=== PATIENT | female | born 1935 | race Caucasian/White ===

== ENCOUNTER 2021-07-19 01:40 | Inpatient (IN) ==
[2021-07-19 02:00] LABS: BILIRUBIN,URINE Negative (NEGATIVE); CLARITY,URINE Clear (CLEAR); COLOR,URINE Yellow (YELLOW); GLUCOSE, URINE (UA) Negative (NEGATIVE); KETONES,URINE Negative (NEGATIVE); LEUKOCYTE ESTERASE ,URINE 3+ (NEGATIVE); NITRITE,URINE Negative (NEGATIVE); PH,URINE 6.5 (5-9); PROTEIN,URINE 2+ (NEGATIVE); URINE, BLOOD 2+ (NEGATIVE); UROBILINOGEN,URINE 0.2 (0.2)
[2021-07-19 02:07] LABS: RENAL EPITHELIAL CELLS,URINE 30-50 (NOT PRESENT); URINE RBC, MICROSCOPIC 30-50 (0-2); URINE WBC, MICROSCOPIC TNTC (0-2)
[2021-07-19 02:08] LABS: BACTERIA,URINE 4+ (NOT PRESENT)
[2021-07-19] MEDS ORDERED: LEVAQUIN 500 MG/100 ML D5W 500 MG/100 ML BAG IV STA (02:30)
[2021-07-19 02:48] LABS: BASOPHILS # (AUTO) 0.1 K/uL (0-0.2); BASOPHILS % (AUTO) 0.4 % (0.0-3.0); EOSINOPHILS # (AUTO) 0.3 K/ul (0.0-0.7); EOSINOPHILS % (AUTO) 1.8 % (0.0-7.0); HEMATOCRIT 37.3 % (37.0-47.0); HEMOGLOBIN 12.1 g/dl (12.0-16.0); IMMATURE GRANULOCYTE # (AUTO) 0.1 (0.0-1.0); IMMATURE GRANULOCYTE % (AUTO) 0.4 % (0.0-5.0); LYMPHOCYTES # (AUTO) 1.8 K/uL (0.60-3.4); LYMPHOCYTES % (AUTO) 13.2 (10.0-50.0); MEAN CORPUSCULAR HEMOGLOBIN 26.8 pg (27.0-31.0); MEAN CORPUSCULAR HGB CONC 32.4 (31.8-35.4); MEAN CORPUSCULAR VOLUME 82.7 fl (81.0-99.0); MONOCYTES # (AUTO) 1.2 K/uL (0.4-2.0); NEUTROPHILS # (AUTO) 10.2 K/ul (2.0-6.9); NEUTROPHILS % (AUTO) 75.2 % (42.2-75.2); PLATELET COUNT 223 10^3/uL (140-440); RDW COEFFICIENT OF VARIATION 12.7 % (11.6-14.8); RED BLOOD COUNT 4.51 10^6/ul (4.20-5.40); WHITE BLOOD COUNT 13.53 K/ul (4.6-10.2)
[2021-07-19 03:05] LABS: ALANINE AMINOTRANSFERASE 39.2 U/L (0-35); ALBUMIN 4.13 g/dL (3.5-5.0); ALKALINE PHOSPHATASE 98.8 U/L (53-141); ASPARTATE AMINO TRANSFERASE 38.6 U/L (14-36); BILIRUBIN,TOTAL 0.65 mg/dL (0.2-1.3); BLOOD UREA NITROGEN 11.5 mg/dL (7-17); CALCIUM 9.36 mg/dL (8.4-10.2); CARBON DIOXIDE 28.1 mmol/L (22-30.0); CHLORIDE 98.4 mmol/L (98-107); CREATININE 0.89 mg/dL (0.60-1.30); GLUCOSE 158.5 mg/dL (74-106); POTASSIUM 4.28 mmol/L (3.5-5.1); TOTAL PROTEIN 6.95 g/dL (6.3-8.2)
[2021-07-19 03:06] LABS: SODIUM 134.5 mmol/L (134.5-145)
--- NOTE | 2021-07-19 03:08 | ED.PDOC ---
General ED Provider: Dr. DANIEL ROGERS Chief Complaint: Urinary Problem Stated Complaint: Patient is an 85 year old female who comes to the ER with complaints of burning on urination and flank pain for one day. States has a history of Multiple UTIS. Time Seen by Provider: 07/19/21 02:25 Mode of Arrival: Ambulance Information Source: Patient and EMT Primary Care Provider: ANGELA OCAMPO Nursing and Triage Documentation Reviewed and Agree: Yes Does patient meet sepsis criteria?: No System Inflammatory Response Syndrome: Temp 101F or Greater Sepsis Protocol: For patient's 13 years and over: Temp is 96.8 and below OR 101 and greater Pulse >90 BPM Resp >20/minute Acutely Altered Mental Status Are patient's symptoms suggestive of a new infection, such as: -Pneumonia -Skin, Soft Tissue -Endocarditis -UTI -Bone, Joint Infection -Implantable Device -Acute Abdominal Infection -Wound Infection -Meningitis -Blood Stream Catheter Infection -Unknown Complaint Exam UTI Female Complaint/Exam Patient Complains of: Reports Painful urination and Blood in urine Onset/Duration: 2 days Symptoms Are: Still present Timing: Constant Initial Severity: Mild Current Severity: Moderate Location of Pain: Reports Right and Flank Associated Signs and Symptoms: Reports Flank pain Patient Rh Status: Unknown Related History: Reports Similar episode CVA Tenderness: Yes Suprapubic Tenderness: Yes Differential Diagnoses: Cystitis and Pyelonephritis Review of Systems Review Of Systems Constitutional: Reports No symptoms Eyes: Reports No symptoms Ears, Nose, Mouth, Throat: Reports No symptoms Respiratory: Reports No symptoms Cardiac: Reports No symptoms GI: Reports Abdominal pain (suprapubic area ) : Reports Burning, Dysuria and Flank pain Musculoskeletal: Reports No symptoms Skin: Reports No symptoms Neurological: Reports Anxiety Endocrine: Reports No symptoms All Other Systems: Reviewed and Negative [facility] Medical History (Updated 07/19/21 @ 05:30 by WILIAN VIGIL RN) Asthma Familial tremor High cholesterol Hypertension TIA (transient ischemic attack) Family History (Updated 07/19/21 @ 05:32 by WILIAN VIGIL RN) Mother Breast cancer Heart disease FATHER Heart disease SISTER Heart disease Leukemia Social History Smoking and tobacco status: Former smoker Substance use type: does not use Surgical History (Updated 07/19/21 @ 05:33 by WILIAN VIGIL RN) H/O section History of cholecystectomy History of hysterectomy Female Reproductive History Menstrual Hx Hysterectomy: Yes Hx Tubal Ligation: No Physical Exam Physical Exam Appearance: Reports Ill-appearing Ill-appearing: Mild Pain Distress: Moderate Eyes: Reports Conjunctiva clear ENT: Reports Nose normal and Oropharynx normal Neck: Not Examined Respiratory: Reports Airway patent and Breath sounds clear Cardiovascular: Reports RRR and Pulses normal GI/: Reports Soft and Tender Musculoskeletal: Reports ROM intact Skin: Reports Warm and Dry Neurological: Reports Motor intact and Alert Psychiatric: Reports Anxious Interpretation Radiology Interpretation Radiology Interpretation By: Radiologist Radiology Results: No acute changes Exam Interpreted: CT Scan (1. Small hepatic cyst or hemangioma. 2. Status post cholecystectomy. 3. Diverticulosis without diverticulitis. 4. No acute inflammatory process identified within the abdomen or pelvis within the limitation of a noncontrast enhanced examination) Critical Care Note Critical Care Note Total Critical Care Time (mins): 30 Course Course Hematology/Chemistry: 07/19/21 02:45 07/19/21 02:45 Orders, Labs, Meds: Lab Review 07/19/21 07/19/21 07/19/21 02:00 02:45 02:45 WBC 13.53 H RBC 4.51 Hgb 12.1 Hct 37.3 MCV 82.7 MCH 26.8 L MCHC 32.4 RDW Coeff of Jaleesa 12.7 Plt Count 223 Immature Gran % (Auto) 0.4 Neut % (Auto) 75.2 Lymph % (Auto) 13.2 Elk % (Auto) 9.0 Eos % (Auto) 1.8 Baso % (Auto) 0.4 Neut # (Auto) 10.2 H Lymph # (Auto) 1.8 Elk # (Auto) 1.2 Eos # (Auto) 0.3 Baso # (Auto) 0.1 Immature Gran # (Auto) 0.1 Sodium 134.5 Potassium 4.28 Chloride 98.4 Carbon Dioxide 28.1 Anion Gap 12.28 BUN 11.5 Creatinine 0.89 Estimated GFR (MDRD) 61.00 BUN/Creatinine Ratio 12.92 Glucose 158.5 H Calcium 9.36 Total Bilirubin 0.65 AST 38.6 H ALT 39.2 H Alkaline Phosphatase 98.8 Total Protein 6.95 Albumin 4.13 Globulin 2.82 Albumin/Globulin Ratio 1.46 Procalcitonin Urine Color Yellow Urine Clarity Clear Urine pH 6.5 Ur Specific Thebes 1.015 Urine Protein 2+ H Urine Glucose (UA) Negative Urine Ketones Negative Urine Blood 2+ H Urine Nitrite Negative Urine Bilirubin Negative Urine Urobilinogen 0.2 Ur Leukocyte Esterase 3+ H Urine Microscopic RBC 30-50 Urine Microscopic WBC Tntc Ur Squamous Epith Cells 10-20 Ur Renal Epithelial Cell 30-50 Urine Bacteria 4+ Adenovirus (PCR) B. pertussis DNA (PCR) B.parapertussis DNA PCR C. pneumoniae DNA (PCR) Coronavirus OC43 (PCR) Coronavirus HKU1 (PCR) Coronavirus 229E (PCR) Coronavirus NL63 (PCR) Human Metapneumovir PCR Influenza Type A (PCR) Influenza B (RT-PCR) M. pneumoniae (PCR) Parainfluenza 1 (PCR) Parainfluenza 2 (PCR) Parainfluenza 3 (PCR) Parainfluenza 4 (PCR) RSV (PCR) Entero/Rhino (PCR) SARS-CoV-2 (PCR) 07/19/21 07/19/21 02:45 03:04 WBC RBC Hgb Hct MCV MCH MCHC RDW Coeff of Jaleesa Plt Count Immature Gran % (Auto) Neut % (Auto) Lymph % (Auto) Elk % (Auto) Eos % (Auto) Baso % (Auto) Neut # (Auto) Lymph # (Auto) Elk # (Auto) Eos # (Auto) Baso # (Auto) Immature Gran # (Auto) Sodium Potassium Chloride Carbon Dioxide Anion Gap BUN Creatinine Estimated GFR (MDRD) BUN/Creatinine Ratio Glucose Calcium Total Bilirubin AST ALT Alkaline Phosphatase Total Protein Albumin Globulin Albumin/Globulin Ratio Procalcitonin < 0.05 Urine Color Urine Clarity Urine pH Ur Specific Thebes Urine Protein Urine Glucose (UA) Urine Ketones Urine Blood Urine Nitrite Urine Bilirubin Urine Urobilinogen Ur Leukocyte Esterase Urine Microscopic RBC Urine Microscopic WBC Ur Squamous Epith Cells Ur Renal Epithelial Cell Urine Bacteria Adenovirus (PCR) Not detected B. pertussis DNA (PCR) Not detected B.parapertussis DNA PCR Not detected C. pneumoniae DNA (PCR) Not detected Coronavirus OC43 (PCR) Not detected Coronavirus HKU1 (PCR) Not detected Coronavirus 229E (PCR) Not detected Coronavirus NL63 (PCR) Not detected Human Metapneumovir PCR Not detected Influenza Type A (PCR) Not detected Influenza B (RT-PCR) Not detected M. pneumoniae (PCR) Not detected Parainfluenza 1 (PCR) Not detected Parainfluenza 2 (PCR) Not detected Parainfluenza 3 (PCR) Not detected Parainfluenza 4 (PCR) Not detected RSV (PCR) Not detected Entero/Rhino (PCR) Not detected SARS-CoV-2 (PCR) Not detected Orders Category Date Time Status ADMIT PATIENT INPATIENT .TO [facility] (NON-MONITORED ADMISSION 07/19/21 03:43 Active BED) ACTIVITY .Up ad [place] CARE 07/19/21 03:45 Active INTAKE & OUTPUT Q8HR CARE 07/19/21 03:43 Active VITAL SIGNS Q8HR CARE 07/19/21 03:45 Active 2 GRAM SODIUM DIET DIETARY 07/19/21 Breakfast Ordered ED IV/MEDIPORT/POWERPORT .ONCE EMERGENCY 07/19/21 02:30 Active CBC W/ AUTO DIFF DAILY@0600 LAB 07/20/21 06:00 Ordered CBC W/ AUTO DIFF Stat LAB 07/19/21 02:45 Completed COMPREHENSIVE METABOLIC PANEL DAILY@0600 LAB 07/20/21 06:00 Ordered COMPREHENSIVE METABOLIC PANEL Stat LAB 07/19/21 02:45 Completed PROCALCITONIN Stat LAB 07/19/21 02:45 Completed RESPIRATORY PANEL 2.1 (PCR) Stat LAB 07/19/21 03:04 Completed URINALYSIS C & S IF INDICATED Stat LAB 07/19/21 02:00 Completed URINE CULTURE Stat LAB 07/19/21 02:00 Received 0.9 % Sodium Chloride [Saline Flush] MEDS 07/19/21 02:30 Active 1 syr IVF PRN PRN Acetaminophen [Tylenol] MEDS 07/19/21 03:43 Active 650 mg PO Q4H PRN Clopidogrel Bisulfate [Plavix] MEDS 07/19/21 09:00 Active 75 mg PO DAILY Enoxaparin Sodium [Lovenox] MEDS 07/19/21 09:00 Active 40 mg SUBCUT DAILY Hydrocodone Bit/Acetaminophen [[place] 5-325] MEDS 07/19/21 03:43 Active 1 tab PO Q6H PRN Hydromorphone HCl [Dilaudid 1 mg/ml Syringe] MEDS 07/19/21 03:43 Active 0.5 mg IVP Q4HR PRN Levofloxacin/D5w [Levaquin 500 mg/100 ml D5w] MEDS 07/20/21 15:00 Active 500 mg in 100 ml IV DAILY Levofloxacin/D5w [Levaquin 500 mg/100 ml D5w] MEDS 07/19/21 02:30 Discontinued 500 mg in 100 ml IV ONCE Losartan Potassium [Cozaar] MEDS 07/19/21 09:00 Active 50 mg PO DAILY Ondansetron HCl/Pf [Zofran 4 mg/2 ml] MEDS 07/19/21 03:43 Active 4 mg IVP Q6H PRN Pantoprazole Sodium [Protonix] MEDS 07/19/21 06:30 Active 40 mg PO DAILY@0630 Polyethylene Glycol 3350 [Miralax] MEDS 07/19/21 09:00 Active 17 gm PO DAILY Potassium Chloride in 0.9%NaCl [Sodium Chloride 0.9%- MEDS 07/19/21 04:00 Active KCl 20 Meq] 1,000 ml IV 125 mls/hr Pravastatin Sodium [Pravachol] MEDS 07/19/21 21:00 Active 40 mg PO BEDTIME Primidone [Mysoline] MEDS 07/19/21 09:00 Active 50 mg PO BID linaclotide [Linzess] MEDS 07/19/21 09:00 Pending 72 mcg PO DAILY propranolol MEDS 07/19/21 09:00 Pending 120 mg PO DAILY RESUSCITATION STATUS Routine OTHERS 07/19/21 03:[address] ABD/PEL WO RENAL STONE PROT Stat RADS 07/19/21 03:04 Completed Medications Generic Name Dose Route Start Last Admin Trade Name Freq PRN Reason Stop Dose Admin Acetaminophen 650 mg 07/19/21 03:43 Acetaminophen 325 Mg Tablet PO Q4H PRN mild pain Hydrocodone Bitart/Acetaminophen 1 tab 07/19/21 03:43 Hydrocodone Bit/Acetaminophen 5/325 Mg Tablet PO Q6H PRN moderate pain Clopidogrel Bisulfate 75 mg 07/19/21 09:00 Clopidogrel Bisulfate 75 Mg Tablet PO DAILY SHEELA Enoxaparin Sodium 40 mg 07/19/21 09:00 Enoxaparin Sodium 40 Mg/0.4 Ml Syr SUBCUT DAILY SHEELA Hydromorphone HCl 0.5 mg 07/19/21 03:43 Hydromorphone Hcl 1 Mg/Ml Syringe IVP Q4HR PRN Severe Pain Potassium Chloride/Sodium Chloride 1,000 mls @ 125 mls/hr 09/24/21 04:00 07/19/21 04:40 Sodium Chloride 0.9%-Kcl 20 Meq IV 125 mls/hr .Q8H SHEELA Administration Levofloxacin/Dextrose 500 mg in 100 mls @ 100 mls/hr 07/20/21 15:00 Levaquin 500 Mg/100 Ml D5w IV 07/23/21 14:59 DAILY SHEELA Losartan Potassium 50 mg 07/19/21 09:00 Losartan Potassium 25 Mg Tablet PO DAILY SHEELA Non-Formulary Medication 72 mcg 07/19/21 09:00 Linaclotide [Linzess] PO DAILY SHEELA Non-Formulary Medication 120 mg 07/19/21 09:00 Propranolol PO DAILY SHEELA Ondansetron HCl 4 mg 07/19/21 03:43 Ondansetron Hcl/Pf 4 Mg/2 Ml Sdv IVP Q6H PRN Nausea / Vomiting Pantoprazole Sodium 40 mg 07/19/21 06:30 07/19/21 05:55 Pantoprazole Sodium 40 Mg Tablet.Dr PO 40 mg DAILY@0630 SHEELA Administration Polyethylene Glycol 17 gm 07/19/21 09:00 Polyethylene Glycol 17 Gm Powd.Pack PO DAILY SHEELA Pravastatin Sodium 40 mg 07/19/21 21:00 Pravastatin Sodium 40 Mg Tablet PO BEDTIME SHEELA Primidone 50 mg 07/19/21 09:00 Primidone 50 Mg Tablet PO BID SHEELA Sodium Chloride 1 syr 07/19/21 02:30 0.9% Sodium Chloride 10 Ml Disp.Syrin IVF PRN PRN To flush IV Discontinued Medications Generic Name Dose Route Start Last Admin Trade Name Freq PRN Reason Stop Dose Admin Levofloxacin/Dextrose 500 mg in 100 mls @ 100 mls/hr 07/19/21 02:30 07/19/21 02:52 Levaquin 500 Mg/100 Ml D5w IV 07/19/21 03:29 100 mls/hr ONCE STA Administration Vital Signs: Temp Pulse Resp BP Pulse Ox 07/19/21 01:40 97.1 F L 80 14 154/69 H 96 Discharge Plan Discharge Patient Disposition: ADMITTED INPATIENT Discharge Problem: Acute pyelonephritis due to bacteria ED Provider: DANIEL ROGERS Condition: Stable Physician Progress Note: []
[2021-07-19] MEDS ORDERED: TYLENOL PO PRN (03:43)
[2021-07-19] MEDS ORDERED: DILAUDID 1 MG/ML SYRINGE IVP PRN (03:43)
[2021-07-19] MEDS ORDERED: ZOFRAN 4 MG/2 ML IVP PRN (03:43)
[2021-07-19] MEDS ORDERED: NORCO 5-325 PO PRN (03:43)
[2021-07-19 04:07] LABS: ADENOVIRUS (PCR) NOT DETECTED (NOT DETECT); BORDETELLA PARAPERTUSSIS (PCR) NOT DETECTED (NOT DETECT); BORDETELLA PERTUSSIS (PCR) NOT DETECTED (NOT DETECT); CHLAMYDIA PNEUMONIAE (PCR) NOT DETECTED (NOT DETECT); CORONAVIRUS 229E (PCR) NOT DETECTED (NOT DETECT); CORONAVIRUS HKU1 (PCR) NOT DETECTED (NOT DETECT); CORONAVIRUS NL63 (PCR) NOT DETECTED (NOT DETECT); CORONAVIRUS OC43 (PCR) NOT DETECTED (NOT DETECT); HUMAN METAPNEUMOVIRUS (PCR) NOT DETECTED (NOT DETECT); HUMAN RHINOVIRUS/ENTEROV (PCR) NOT DETECTED (NOT DETECT); INFLUENZA B (PCR) NOT DETECTED (NOT DETECT); MYCOPLASMA PNEUMONIAE (PCR) NOT DETECTED (NOT DETECT); PARAINFLUENZA VIRUS 1 (PCR) NOT DETECTED (NOT DETECT); PARAINFLUENZA VIRUS 2 (PCR) NOT DETECTED (NOT DETECT); PARAINFLUENZA VIRUS 3 (PCR) NOT DETECTED (NOT DETECT); PARAINFLUENZA VIRUS 4 (PCR) NOT DETECTED (NOT DETECT); RESPIRATORY SYNCYTIAL V (PCR) NOT DETECTED (NOT DETECT); SARS_COV_2 (PCR) NOT DETECTED (NOT DETECT)
--- NOTE | 2021-07-19 04:28 | CT ---
EXAM: CT abdomen pelvis without intravenous contrast 07/19/2021. Sagittal and coronal reformatted i mages obtained HISTORY: Right flank pain. COMPARISON: None. FINDINGS: No acute hepatic abnormality. Focal low density within the left lobe on image 16 measures 7 mm. This may represent small cyst or hemangioma. Liver shows no acute process. Status post chol ecystectomy. The adrenal glands and kidneys show no acute abnormality. There is no hydronephrosis. Unremarkable urinary bladder. The spleen and pancreas show no acute process. The appendix not visualized. No secondary signs of appendicitis. Unremarkable urinary bladder. No free air. No free fluid. Colonic diverticulosis. No evidence of acute diverticulitis. Chronic degenerative disc disease most severe L4-L5. No acute osseous abnormality IMPRESSION: 1. Small hepatic cyst or hemangioma. 2. Status post cholecystectomy. 3. Diverticulosis without diverticulitis. 4. No acute inflammatory process identified within the abdomen or pelvis within the limitation of a noncontrast enhanced examination. All CT scans are performed using dose optimization techniques as appropriate to the performed exam an d include at least one of the following: Automated exposure control, adjustment of the mA and/or kV according t o size, and the use of iterative reconstruction technique.
[2021-07-19] MEDS: SODIUM CHLORIDE 0.9%-KCL 20 MEQ 1,000 ML IV SCH ×2 (04:40→14:04)
[2021-07-19 05:40] VITALS: BMI 24.9
[2021-07-19] MEDS: PROTONIX PO SCH (05:55)
[2021-07-19] MEDS ORDERED: PROPRANOLOL 120 MG PO SCH (09:00)
[2021-07-19] MEDS: COZAAR PO SCH (10:19)
[2021-07-19] MEDS: LOVENOX SUBCUT SCH (10:24)
[2021-07-19] MEDS: INDERAL PO SCH ×2 (10:25→20:29)
[2021-07-19] MEDS: MIRALAX PO SCH (10:26)
[2021-07-19] MEDS: PLAVIX PO SCH (10:27)
[2021-07-19] MEDS: MYSOLINE PO SCH ×2 (10:32→20:29)
[2021-07-19] MEDS: NON-FORMULARY MEDICATION (Linaclotide [Linzess] 72 mcg Capsule) PO SCH (13:51)
[2021-07-19] MEDS: PRAVACHOL PO SCH (20:29)
[2021-07-19] MEDS ORDERED: LEVAQUIN 750 MG/150 ML D5W 750 MG/150 ML BAG IV SCH (21:00)
[2021-07-20] MEDS: SODIUM CHLORIDE 0.9%-KCL 20 MEQ 1,000 ML IV SCH ×3 (00:10→17:48)
[2021-07-20 04:52] LABS: BASOPHILS % (AUTO) 0.5 % (0.0-3.0); EOSINOPHILS # (AUTO) 0.3 K/ul (0.0-0.7); EOSINOPHILS % (AUTO) 5.1 % (0.0-7.0); HEMATOCRIT 34.5 % (37.0-47.0); HEMOGLOBIN 10.8 g/dl (12.0-16.0); IMMATURE GRANULOCYTE % (AUTO) 0.3 % (0.0-5.0); LYMPHOCYTES # (AUTO) 1.9 K/uL (0.60-3.4); LYMPHOCYTES % (AUTO) 32.1 (10.0-50.0); MEAN CORPUSCULAR HEMOGLOBIN 26.4 pg (27.0-31.0); MEAN CORPUSCULAR HGB CONC 31.3 (31.8-35.4); MEAN CORPUSCULAR VOLUME 84.4 fl (81.0-99.0); MONOCYTES # (AUTO) 0.6 K/uL (0.4-2.0); MONOCYTES % (AUTO) 10.9 (0-10); NEUTROPHILS % (AUTO) 51.1 % (42.2-75.2); PLATELET COUNT 193 10^3/uL (140-440); RDW COEFFICIENT OF VARIATION 12.7 % (11.6-14.8); RED BLOOD COUNT 4.09 10^6/ul (4.20-5.40)
[2021-07-20 04:53] LABS: WHITE BLOOD COUNT 5.89 K/ul (4.6-10.2)
[2021-07-20 05:02] LABS: ALANINE AMINOTRANSFERASE 24.4 U/L (0-35); ALBUMIN 3.45 g/dL (3.5-5.0); ALKALINE PHOSPHATASE 86.3 U/L (53-141); ASPARTATE AMINO TRANSFERASE 23.9 U/L (14-36); BILIRUBIN,TOTAL 0.47 mg/dL (0.2-1.3); BLOOD UREA NITROGEN 10.3 mg/dL (7-17); CALCIUM 8.64 mg/dL (8.4-10.2); CARBON DIOXIDE 26.9 mmol/L (22-30.0); CHLORIDE 107.4 mmol/L (98-107); CREATININE 0.86 mg/dL (0.60-1.30); GLUCOSE 124.1 mg/dL (74-106); POTASSIUM 4.56 mmol/L (3.5-5.1); SODIUM 139.7 mmol/L (134.5-145); TOTAL PROTEIN 6.08 g/dL (6.3-8.2)
[2021-07-20] MEDS: PROTONIX PO SCH (05:47)
[2021-07-20] MEDS: INDERAL PO SCH ×2 (08:36→21:01)
[2021-07-20] MEDS: MIRALAX PO SCH (08:36)
[2021-07-20] MEDS: COZAAR PO SCH (08:37)
[2021-07-20] MEDS: PLAVIX PO SCH (08:37)
[2021-07-20] MEDS: LOVENOX SUBCUT SCH (08:39)
[2021-07-20] MEDS: NON-FORMULARY MEDICATION (Linaclotide [Linzess] 72 mcg Capsule) PO SCH (08:47)
[2021-07-20] MEDS: MYSOLINE PO SCH ×2 (08:50→21:01)
[2021-07-20] MEDS ORDERED: LEVAQUIN 500 MG/100 ML D5W 500 MG/100 ML BAG IV SCH (15:00)
--- NOTE | 2021-07-20 19:55 | PCM.PROG ---
Date Seen by Provider: 07/20/21 Time Seen by Provider: 14:30 Subjective: Feeling much better today. Objective: Vitals: T=97.7 F, P=62, R=20, QL=449/54, SPO2=98 HEENT: Clear Neck: supple Lungs: CTA-AF CVS: HRRR Abdomen: Soft non tender Extremities: Tremor Neurological: Familial tremor Skin: WNL Lab/Tests/Diagnostic Imaging: Culture -postive gm neg lenka (1) Acute pyelonephritis due to bacteria: Status: Acute Code(s): N10 - Acute pyelonephritis; B96.89 - Other specified bacterial agents as the cause of diseases classified elsewhere SNOMED Code(s): 139133476 Plan: Continue present treatment Follw up in the AM
[2021-07-20] MEDS: PRAVACHOL PO SCH (21:01)
[2021-07-21 04:54] LABS: BASOPHILS % (AUTO) 0.5 % (0.0-3.0); EOSINOPHILS # (AUTO) 0.5 K/ul (0.0-0.7); HEMATOCRIT 35.6 % (37.0-47.0); HEMOGLOBIN 11.3 g/dl (12.0-16.0); IMMATURE GRANULOCYTE % (AUTO) 0.4 % (0.0-5.0); LYMPHOCYTES # (AUTO) 2.2 K/uL (0.60-3.4); LYMPHOCYTES % (AUTO) 29.4 (10.0-50.0); MEAN CORPUSCULAR HEMOGLOBIN 26.7 pg (27.0-31.0); MEAN CORPUSCULAR HGB CONC 31.7 (31.8-35.4); MONOCYTES # (AUTO) 0.7 K/uL (0.4-2.0); MONOCYTES % (AUTO) 9.4 (0-10); NEUTROPHILS # (AUTO) 4.1 K/ul (2.0-6.9); NEUTROPHILS % (AUTO) 54.3 % (42.2-75.2); PLATELET COUNT 222 10^3/uL (140-440); RDW COEFFICIENT OF VARIATION 12.7 % (11.6-14.8); RED BLOOD COUNT 4.24 10^6/ul (4.20-5.40); WHITE BLOOD COUNT 7.48 K/ul (4.6-10.2)
[2021-07-21 05:06] LABS: ALANINE AMINOTRANSFERASE 21.5 U/L (0-35); ALBUMIN 3.84 g/dL (3.5-5.0); ALKALINE PHOSPHATASE 86.5 U/L (53-141); ASPARTATE AMINO TRANSFERASE 22.9 U/L (14-36); BILIRUBIN,TOTAL 0.42 mg/dL (0.2-1.3); BLOOD UREA NITROGEN 10.8 mg/dL (7-17); CALCIUM 9.28 mg/dL (8.4-10.2); CARBON DIOXIDE 29.1 mmol/L (22-30.0); CHLORIDE 103.4 mmol/L (98-107); CREATININE 0.85 mg/dL (0.60-1.30); GLUCOSE 136.8 mg/dL (74-106); MAGNESIUM 2.08 mg/dL (1.6-2.3); POTASSIUM 4.33 mmol/L (3.5-5.1); SODIUM 137.3 mmol/L (134.5-145); TOTAL PROTEIN 6.57 g/dL (6.3-8.2)
[2021-07-21] MEDS: PROTONIX PO SCH (06:11)
[2021-07-21] MEDS: MIRALAX PO SCH (09:30)
[2021-07-21] MEDS: INDERAL PO SCH (09:30)
[2021-07-21] MEDS: PLAVIX PO SCH (09:30)
[2021-07-21] MEDS: COZAAR PO SCH (09:30)
[2021-07-21] MEDS: MYSOLINE PO SCH (09:30)
[2021-07-21] MEDS: NON-FORMULARY MEDICATION (Linaclotide [Linzess] 72 mcg Capsule) PO SCH (09:31)
[2021-07-21] MEDS: LOVENOX SUBCUT SCH (09:31)
[2021-07-21 13:42] VITALS: BP 135/57; TEMP 97.3
--- NOTE | 2021-08-11 20:55 | PCM.DC ---
Final Diagnosis: Pyelonephritis (1) Acute pyelonephritis due to bacteria: Status: Acute Code(s): N10 - Acute pyelonephritis; B96.89 - Other specified bacterial agents as the cause of diseases classified elsewhere SNOMED Code(s): 851862003 Reason for Hospitalization: Treatment of infection with IV antibiotics Prognosis/Condition at Discharge: Fair Medications at Discharge: Ambulatory Orders Medication Instructions Recorded clopidogrel 75 mg tablet (Plavix) 75 mg PO DAILY 12/10/19 pantoprazole 20 mg tablet,delayed 40 mg PO DAILY 12/10/19 release primidone 50 mg tablet 50 mg PO BID 12/10/19 losartan 50 mg tablet 50 mg PO DAILY 03/24/21 polyethylene glycol 3350 17 17 g PO DAILY PRN 03/24/21 gram/dose oral powder (Miralax) pravastatin 40 mg tablet 40 mg PO BEDTIME 03/24/21 propranolol 120 mg 120 mg PO DAILY 03/24/21 capsule,extended release 24 hr linaclotide 72 mcg capsule 72 mcg PO DAILY 07/19/21 (Linzess) levofloxacin 250 mg tablet 750 mg PO Q48H #6 tab 07/21/21 Lab/Diagnostics: See Lab Section Follow-ups: See PCP 1 wk
== END 2021-07-21 14:50 | disposition home or self-care (01) | DRG 690 ==
LOC: ED 01:40 → MEDSURG A 04:40
PROVIDERS: ADMIT Internal Medicine Geriatric Medicine; ATTEND Family Medicine
DX: B96.89 Other specified bacterial agents as the cause of diseases classified elsewhere; R10.9 Unspecified abdominal pain; N10 Acute pyelonephritis; Z20.822 Contact with and (suspected) exposure to COVID-19

== ENCOUNTER 2021-08-24 11:05 | Inpatient (IN) ==
--- NOTE | 2021-08-24 11:23 | ED.PDOC ---
General ED Provider: Dr. MARISELA FERRER Chief Complaint: Altered Mental Status Stated Complaint: Recent treatment for UTI yesterday here Given IM Rocephin and discharged to home. Found to be very confused this morning sitting on floor in residence-not making and Time Seen by Provider: 08/24/21 12:21 Mode of Arrival: Ambulance Information Source: Patient Exam Limitations: Clinical condition Primary Care Provider: ANGELA OCAMPO Seen Within Last 72 Hours for Same Complaint By: ED Nursing and Triage Documentation Reviewed and Agree: Yes Does patient meet sepsis criteria?: No System Inflammatory Response Syndrome: Not Applicable Sepsis Protocol: For patient's 13 years and over: Temp is 96.8 and below OR 101 and greater Pulse >90 BPM Resp >20/minute Acutely Altered Mental Status Are patient's symptoms suggestive of a new infection, such as: -Pneumonia -Skin, Soft Tissue -Endocarditis -UTI -Bone, Joint Infection -Implantable Device -Acute Abdominal Infection -Wound Infection -Meningitis -Blood Stream Catheter Infection -Unknown Review of Systems Review Of Systems Constitutional: Reports Weakness and Loss of appetite Eyes: Reports No symptoms Ears, Nose, Mouth, Throat: Reports No symptoms Respiratory: Reports No symptoms Cardiac: Reports No symptoms GI: Reports No symptoms : Reports No symptoms Musculoskeletal: Reports No symptoms Skin: Reports No symptoms Neurological: Reports Anxiety Endocrine: Reports No symptoms Hematologic/Lymphatic: Reports No symptoms All Other Systems: Reviewed and Negative [facility] Medical History (Updated 08/24/21 @ 15:59 by AGNIESZKA LESTER RN) Acute pyelonephritis due to bacteria Asthma Familial tremor High cholesterol Hypertension TIA (transient ischemic attack) Family History Mother Breast cancer Heart disease FATHER Heart disease SISTER Heart disease Leukemia Social History Smoking and tobacco status: Former smoker Substance use type: does not use Surgical History H/O section History of cholecystectomy History of hysterectomy Female Reproductive History Menstrual Hx Hysterectomy: Yes Hx Tubal Ligation: No Physical Exam Physical Exam Appearance: Reports Ill-appearing, Obese and Cachectic Ill-appearing: Mild Pain Distress: Mild Eyes: Reports VALENTINO, EOMI and Conjunctiva clear ENT: Reports Ears normal, Nose normal and Oropharynx normal Neck: Supple Respiratory: Reports Airway patent, Breath sounds clear and Breath sounds equal Cardiovascular: Reports RRR, Pulses normal and No murmur GI/: Reports Soft, Nontender, No masses and Bowel sounds normal Musculoskeletal: Reports Normal strength, ROM intact and Limited strength Skin: Reports Warm, Dry and Pale Neurological: Reports Motor intact, Cranial nerves intact, Alert, Disoriented and Alert to verbal Psychiatric: Reports Affect appropriate and Mood appropriate NIH Stroke Scale 1a. Level of Consciousness: 0=Alert and keenly responsive 1b. Level of Consciousness Questions: 1=Answers correctly to one question 1c. Level of Consciousness Commands: 0=Performs two tasks correctly 2. Best Gaze: 0=Normal 3. Visual: 0=No visual loss 4. Facial Palsy: 0=Normal 5a. Motor Left Arm: 0=No drift,arm holds 90 degrees for 10 sec., leg 30 degrees for 5 sec. 5b. Motor Right Arm: 0=No drift,arm holds 90 degrees for 10 sec., leg 30 degrees for 5 sec. 6a. Motor Left Le=No drift,arm holds 90 degrees for 10 sec., leg 30 degrees for 5 sec. 6b. Motor Right Le=No drift,arm holds 90 degrees for 10 sec., leg 30 degrees for 5 sec. 7. Limb Ataxia: 0=Absent 8. Sensory: 0=Normal 9. Best Language: 0=No aphasia 10. Dysarthria: 0=Normal 11. Extincion and Inattention: 0=Normal Stroke Scale Total: 1 Critical Care Note Critical Care Note Total Critical Care Time (mins): 30 Course Course Hematology/Chemistry: 08/26/21 05:14 08/26/21 05:14 Orders, Labs, Meds: Lab Review 08/24/21 08/24/21 08/24/21 12:00 12:10 12:10 WBC 23.54 H RBC 4.68 Hgb 12.2 Hct 36.4 L MCV 77.8 L MCH 26.1 L MCHC 33.5 RDW Coeff of Jaleesa 12.7 Plt Count 237 Immature Gran % (Auto) 0.9 Neut % (Auto) 84.1 H Lymph % (Auto) 4.7 L [place] % (Auto) 10.2 H Eos % (Auto) 0.0 Baso % (Auto) 0.1 Neut # (Auto) 19.8 H Lymph # (Auto) 1.1 [place] # (Auto) 2.4 H Eos # (Auto) 0.0 Baso # (Auto) 0.0 Immature Gran # (Auto) 0.2 Puncture Site Base Excess O2 Saturation ABG pH ABG pCO2 ABG pO2 ABG HCO3 ABG Total CO2 Quentin Test Hemoglobin Oxyhemoglobin Carboxyhemoglobin Total Hemoglobin FiO2 % Sodium 129.4 L Potassium 3.71 Chloride 93.7 L Carbon Dioxide 25.2 Anion Gap 14.21 BUN 19.3 H Creatinine 0.83 Estimated GFR (MDRD) 65.00 BUN/Creatinine Ratio 23.25 Glucose 184.5 H Calcium 9.75 Total Bilirubin 1.59 H AST 36.4 H ALT 16.2 Alkaline Phosphatase 86.8 Troponin I < 0.012 Total Protein 7.52 Albumin 4.08 Globulin 3.44 Albumin/Globulin Ratio 1.18 Urine Color Urine Clarity Urine pH Ur Specific [place] Urine Protein Urine Glucose (UA) Urine Ketones Urine Blood Urine Nitrite Urine Bilirubin Urine Urobilinogen Ur Leukocyte Esterase Urine Microscopic RBC Urine Microscopic WBC Ur Squamous Epith Cells Hyaline Casts Urine Mucus Urine Opiates Screen Ur Oxycodone Screen Urine Methadone Screen Ur Propoxyphene Screen Ur Barbiturates Screen U Tricyclic Antidepress Ur Phencyclidine Scrn Ur Amphetamine Screen U Methamphetamines Scrn U Benzodiazepines Scrn Urine Cocaine Screen U Cannabinoids Screen Adenovirus (PCR) B. pertussis DNA (PCR) B.parapertussis DNA PCR C. pneumoniae DNA (PCR) Coronavirus OC43 (PCR) Coronavirus HKU1 (PCR) Coronavirus 229E (PCR) Coronavirus NL63 (PCR) Human Metapneumovir PCR Influenza Type A (PCR) Influenza B (RT-PCR) M. pneumoniae (PCR) Parainfluenza 1 (PCR) Parainfluenza 2 (PCR) Parainfluenza 3 (PCR) Parainfluenza 4 (PCR) RSV (PCR) Entero/Rhino (PCR) SARS-CoV-2 (PCR) 08/24/21 08/24/21 08/24/21 12:30 12:50 12:50 WBC RBC Hgb Hct MCV MCH MCHC RDW Coeff of Jaleesa Plt Count Immature Gran % (Auto) Neut % (Auto) Lymph % (Auto) [place] % (Auto) Eos % (Auto) Baso % (Auto) Neut # (Auto) Lymph # (Auto) [place] # (Auto) Eos # (Auto) Baso # (Auto) Immature Gran # (Auto) Puncture Site Rb Base Excess 1.0 O2 Saturation 91.5 L ABG pH 7.47 H ABG pCO2 34.0 L ABG pO2 58.0 L* ABG HCO3 24.7 ABG Total CO2 25.7 H Quentin Test Pos Hemoglobin 1.5 Oxyhemoglobin 91.9 L Carboxyhemoglobin 2.6 H Total Hemoglobin 11.1 L FiO2 % 21.0 Sodium Potassium Chloride Carbon Dioxide Anion Gap BUN Creatinine Estimated GFR (MDRD) BUN/Creatinine Ratio Glucose Calcium Total Bilirubin AST ALT Alkaline Phosphatase Troponin I Total Protein Albumin Globulin Albumin/Globulin Ratio Urine Color Dark Urine Clarity Slightly Urine pH 5.5 Ur Specific [place] >=1.030 Urine Protein 3+ H Urine Glucose (UA) Trace H Urine Ketones 2+ H Urine Blood 2+ H Urine Nitrite Negative Urine Bilirubin 1+ H Urine Urobilinogen 1.0 H Ur Leukocyte Esterase Negative Urine Microscopic RBC 10-20 Urine Microscopic WBC 0-2 Ur Squamous Epith Cells 5-10 Hyaline Casts 2-5 Urine Mucus 2+ Urine Opiates Screen Negative Ur Oxycodone Screen Negative Urine Methadone Screen Negative Ur Propoxyphene Screen Negative Ur Barbiturates Screen Negative U Tricyclic Antidepress Negative Ur Phencyclidine Scrn Negative Ur Amphetamine Screen Negative U Methamphetamines Scrn Negative U Benzodiazepines Scrn Negative Urine Cocaine Screen Negative U Cannabinoids Screen Negative Adenovirus (PCR) B. pertussis DNA (PCR) B.parapertussis DNA PCR C. pneumoniae DNA (PCR) Coronavirus OC43 (PCR) Coronavirus HKU1 (PCR) Coronavirus 229E (PCR) Coronavirus NL63 (PCR) Human Metapneumovir PCR Influenza Type A (PCR) Influenza B (RT-PCR) M. pneumoniae (PCR) Parainfluenza 1 (PCR) Parainfluenza 2 (PCR) Parainfluenza 3 (PCR) Parainfluenza 4 (PCR) RSV (PCR) Entero/Rhino (PCR) SARS-CoV-2 (PCR) 08/24/21 13:12 WBC RBC Hgb Hct MCV MCH MCHC RDW Coeff of Jaleesa Plt Count Immature Gran % (Auto) Neut % (Auto) Lymph % (Auto) [place] % (Auto) Eos % (Auto) Baso % (Auto) Neut # (Auto) Lymph # (Auto) [place] # (Auto) Eos # (Auto) Baso # (Auto) Immature Gran # (Auto) Puncture Site Base Excess O2 Saturation ABG pH ABG pCO2 ABG pO2 ABG HCO3 ABG Total CO2 Quentin Test Hemoglobin Oxyhemoglobin Carboxyhemoglobin Total Hemoglobin FiO2 % Sodium Potassium Chloride Carbon Dioxide Anion Gap BUN Creatinine Estimated GFR (MDRD) BUN/Creatinine Ratio Glucose Calcium Total Bilirubin AST ALT Alkaline Phosphatase Troponin I Total Protein Albumin Globulin Albumin/Globulin Ratio Urine Color Urine Clarity Urine pH Ur Specific [place] Urine Protein Urine Glucose (UA) Urine Ketones Urine Blood Urine Nitrite Urine Bilirubin Urine Urobilinogen Ur Leukocyte Esterase Urine Microscopic RBC Urine Microscopic WBC Ur Squamous Epith Cells Hyaline Casts Urine Mucus Urine Opiates Screen Ur Oxycodone Screen Urine Methadone Screen Ur Propoxyphene Screen Ur Barbiturates Screen U Tricyclic Antidepress Ur Phencyclidine Scrn Ur Amphetamine Screen U Methamphetamines Scrn U Benzodiazepines Scrn Urine Cocaine Screen U Cannabinoids Screen Adenovirus (PCR) Not detected B. pertussis DNA (PCR) Not detected B.parapertussis DNA PCR Not detected C. pneumoniae DNA (PCR) Not detected Coronavirus OC43 (PCR) Not detected Coronavirus HKU1 (PCR) Not detected Coronavirus 229E (PCR) Not detected Coronavirus NL63 (PCR) Not detected Human Metapneumovir PCR Not detected Influenza Type A (PCR) Not detected Influenza B (RT-PCR) Not detected M. pneumoniae (PCR) Not detected Parainfluenza 1 (PCR) Not detected Parainfluenza 2 (PCR) Not detected Parainfluenza 3 (PCR) Not detected Parainfluenza 4 (PCR) Not detected RSV (PCR) Not detected Entero/Rhino (PCR) Not detected SARS-CoV-2 (PCR) Not detected Orders Category Date Time Status ADMIT PATIENT INPATIENT .TO SCU (MONITORED BED) ADMISSION 08/24/21 13:21 Active ABG DRAW REQUEST Stat CARDIO 08/24/21 11:54 Completed EKG-(ED ONLY) Stat CARDIO 08/24/21 11:50 Completed METERED DOSE INHALATION Routine CARDIO 08/24/21 13:16 Completed TELEMETRY MONITORING TELE CARE 08/24/21 13:22 Active ABG COOX Stat LAB 08/24/21 12:30 Completed BLOOD CULTURE (ED ONLY) Stat LAB 08/24/21 12:55 Results CBC W/ AUTO DIFF Stat LAB 08/24/21 12:00 Completed CMP [COMPREHENSIVE METABOLIC PANEL] Stat LAB 08/24/21 12:10 Completed RESPIRATORY PANEL 2.1 (PCR) Stat LAB 08/24/21 13:12 Completed TROPONIN I Stat LAB 08/24/21 12:10 Completed UA [URINALYSIS C & S IF INDICATED] Stat LAB 08/24/21 12:50 Completed URINE DRUG SCREEN (RAPID FOR ED) [DRUG SCREEN, URINE, LAB 08/24/21 12:50 Compl eted RAPID] Stat Albuterol Inhaler(with Spacer) [Ventolin Hfa (Per Puff- MEDS 08/24/21 13:16 Discontinued with Spacer)] 2 puff IH ONCE ONE Ceftriaxone/D5w 1 gm Premix [Rocephin 1 gm/50 ml D5w] MEDS 08/24/21 13:10 Discontinued 1 gm in 50 ml IV ONCE Methylprednisolone Sod Succ/Pf [Solu-Medrol 125 mg] MEDS 08/24/21 13:16 Discontinued 125 mg IVP ONCE ONE Sodium Chloride 0.9% [Sodium Chloride] 1,000 ml MEDS 08/24/21 13:09 Discontinued IV BOLUS CHEST, 1V AP ONLY Stat RADS 08/24/21 11:[address] HEAD W/O CONTRAST Stat RADS 08/24/21 11:55 Completed Medications Generic Name Dose Route Start Last Admin Trade Name Freq PRN Reason Stop Dose Admin Acetaminophen 650 mg 08/24/21 17:25 08/25/21 04:47 Acetaminophen 325 Mg Tablet PO 650 mg Q4H PRN Administration fever or pain Clopidogrel Bisulfate 75 mg 08/24/21 17:30 08/26/21 09:51 Clopidogrel Bisulfate 75 Mg Tablet PO 75 mg DAILY SHEELA Administration Enoxaparin Sodium 40 mg 08/24/21 17:30 08/26/21 09:55 Enoxaparin Sodium 40 Mg/0.4 Ml Syr SUBCUT 40 mg DAILY SHEELA Administration Sodium Chloride 1,000 mls @ 75 mls/hr 08/24/21 17:30 08/26/21 02:25 Sodium Chloride IV 75 mls/hr .[id number] SHEELA Administration CEFTRIAXONE/D5W 1 GM PREMIX 1 gm in 50 mls @ 75 mls/hr 08/25/21 09:00 08/26/21 09:51 Rocephin 1 Gm/50 Ml D5w IV 08/28/21 08:59 75 mls/hr DAILY SHEELA Administration Losartan Potassium 50 mg 08/25/21 09:00 08/26/21 09:51 Losartan Potassium 25 Mg Tablet PO 50 mg DAILY SHEELA Administration Lubiprostone 24 mcg 08/26/21 21:00 Lubiprostone 24 Mcg Capsule PO BID SHEELA Methylprednisolone Sodium Succinate 125 mg 08/24/21 17:30 08/26/21 13:12 Methylprednisolone Sod Succ/Pf 125 Mg/2 Ml Vial IVP 125 mg Q8HR SHEELA Administration Non-Formulary Medication 120 mg 08/25/21 09:00 08/26/21 09:00 Propranolol PO Not Given DAILY SHEELA Ondansetron HCl 4 mg 08/24/21 17:25 Ondansetron Hcl/Pf 4 Mg/2 Ml Sdv IVP Q6H PRN Nausea / Vomiting Pantoprazole Sodium 40 mg 08/25/21 09:00 08/26/21 09:51 Pantoprazole Sodium 40 Mg Tablet.Dr PO 40 mg DAILY SHEELA Administration Pravastatin Sodium 40 mg 08/24/21 21:00 08/25/21 20:30 Pravastatin Sodium 40 Mg Tablet PO 40 mg BEDTIME SHEELA Administration Primidone 100 mg 08/25/21 21:00 08/25/21 20:30 Primidone 50 Mg Tablet PO 100 mg BEDTIME SHEELA Administration Discontinued Medications Generic Name Dose Route Start Last Admin Trade Name Freq PRN Reason Stop Dose Admin Albuterol Sulfate 2 puff 08/24/21 13:16 08/24/21 13:31 Albuterol Sulfate (Ventolin Hfa) 18 Gm 1 Puff With Spacer IH 08/24/21 13:17 2 puff ONCE ONE Administration Sodium Chloride 1,000 mls @ 1,000 mls/hr 08/24/21 13:09 08/24/21 13:13 Sodium Chloride IV 08/24/21 14:08 1,000 mls/hr BOLUS STA Administration CEFTRIAXONE/D5W 1 GM PREMIX 1 gm in 50 mls @ 75 mls/hr 08/24/21 13:10 08/24/21 13:17 Rocephin 1 Gm/50 Ml D5w IV 08/24/21 13:49 75 mls/hr ONCE STA Administration Methylprednisolone Sodium Succinate 125 mg 08/24/21 13:16 08/24/21 13:19 Methylprednisolone Sod Succ/Pf 125 Mg/2 Ml Vial IVP 08/24/21 13:17 125 mg ONCE ONE Administration Non-Formulary Medication 72 mcg 08/25/21 09:00 08/26/21 09:00 Linaclotide [Linzess] PO Not Given DAILY SHEELA Primidone 100 mg 08/25/21 21:00 Primidone 50 Mg Tablet PO BEDTIME SHEELA Primidone 100 mg 08/24/21 21:33 08/24/21 21:35 Primidone 50 Mg Tablet PO 100 mg BEDTIME SHEELA Administration Vital Signs: Temp Pulse Resp BP Pulse Ox 08/24/21 11:06 97.2 F L 81 18 167/72 H 94 L Discharge Plan Discharge Patient Disposition: ADMITTED INPATIENT Discharge Problem: Acute urinary tract infection ED Provider: MARISELA FERRER Physician Progress Note: []
[2021-08-24 12:07] LABS: BASOPHILS % (AUTO) 0.1 % (0.0-3.0); HEMATOCRIT 36.4 % (37.0-47.0); HEMOGLOBIN 12.2 g/dl (12.0-16.0); IMMATURE GRANULOCYTE % (AUTO) 0.9 % (0.0-5.0); LYMPHOCYTES # (AUTO) 1.1 K/uL (0.60-3.4); LYMPHOCYTES % (AUTO) 4.7 (10.0-50.0); MEAN CORPUSCULAR HEMOGLOBIN 26.1 pg (27.0-31.0); MEAN CORPUSCULAR HGB CONC 33.5 (31.8-35.4); MEAN CORPUSCULAR VOLUME 77.8 fl (81.0-99.0); MONOCYTES # (AUTO) 2.4 K/uL (0.4-2.0); MONOCYTES % (AUTO) 10.2 (0-10); NEUTROPHILS # (AUTO) 19.8 K/ul (2.0-6.9); NEUTROPHILS % (AUTO) 84.1 % (42.2-75.2); PLATELET COUNT 237 10^3/uL (140-440); RDW COEFFICIENT OF VARIATION 12.7 % (11.6-14.8); RED BLOOD COUNT 4.68 10^6/ul (4.20-5.40); WHITE BLOOD COUNT 23.54 K/ul (4.6-10.2)
[2021-08-24 12:08] LABS: IMMATURE GRANULOCYTE # (AUTO) 0.2 (0.0-1.0)
[2021-08-24 12:23] LABS: ALANINE AMINOTRANSFERASE 16.2 U/L (0-35); ALBUMIN 4.08 g/dL (3.5-5.0); ALKALINE PHOSPHATASE 86.8 U/L (53-141); ASPARTATE AMINO TRANSFERASE 36.4 U/L (14-36); BILIRUBIN,TOTAL 1.59 mg/dL (0.2-1.3); BLOOD UREA NITROGEN 19.3 mg/dL (7-17); CALCIUM 9.75 mg/dL (8.4-10.2); CARBON DIOXIDE 25.2 mmol/L (22-30.0); CHLORIDE 93.7 mmol/L (98-107); CREATININE 0.83 mg/dL (0.60-1.30); GLUCOSE 184.5 mg/dL (74-106); POTASSIUM 3.71 mmol/L (3.5-5.1); SODIUM 129.4 mmol/L (134.5-145); TOTAL PROTEIN 7.52 g/dL (6.3-8.2)
--- NOTE | 2021-08-24 12:33 | CT ---
EXAM: CT head without contrast. HISTORY: Mental status change. COMPARISON: None. TECHNIQUE: Multiple axial images of the brain were obtained from the skull base through the vertex w ithout intravenous contrast. Multiplanar reformats were provided. FINDINGS: There is no intracranial hemorrhage or extraaxial collection. The hobson-white differentiat ion is maintained without evidence for acute large vascular territory infarction. There are areas of periventricular and subcortical white matter low attenuation. The cortical sulci and cerebral ventr icles are symmetrically enlarged. The basal cisterns are well visualized. There is no hydrocephalus , mass effect, or midline shift. The paranasal sinuses and mastoid air cells are clear. The calvari um is intact. IMPRESSION: 1. No acute intracranial abnormality. 2. Chronic small vessel ischemic changes and atrophy. All CT scans are performed using dose optimization techniques as appropriate to the performed exam an d include at least one of the following: Automated exposure control, adjustment of the mA and/or kV according t o size, and the use of iterative reconstruction technique.
--- NOTE | 2021-08-24 12:36 | DI ---
EXAM: Chest one view, frontal view only. HISTORY: Mental status change. COMPARISON: 08/23/2021. FINDINGS: The heart size is normal. Atherosclerotic calcifications are present. There is no pulmon uyen vascular congestion. The lungs are clear. No pleural effusion or pneumothorax is seen. No acut e osseous abnormality is identified. Since the prior study, there has been no significant interval c jimmy. IMPRESSION: No acute cardiopulmonary process.
[2021-08-24 12:37] LABS: ABG O2 HGB 91.9 % (95-100); ABG PH 7.47 (7.35-7.45); COHb 2.6 (0.5-1.5); HCO3 24.7 (21-28); MetHb 1.5 (0-1.5); TCO2 25.7 (19-24); sO2 91.5 % (94-98); tHb 11.1 g/dl (11.7-17.4)
[2021-08-24 13:02] LABS: BILIRUBIN,URINE 1+ (NEGATIVE); CLARITY,URINE Slightly (CLEAR); COLOR,URINE Dark (YELLOW); GLUCOSE, URINE (UA) Trace (NEGATIVE); KETONES,URINE 2+ (NEGATIVE); LEUKOCYTE ESTERASE ,URINE Negative (NEGATIVE); NITRITE,URINE Negative (NEGATIVE); PH,URINE 5.5 (5-9); PROTEIN,URINE 3+ (NEGATIVE); URINE, BLOOD 2+ (NEGATIVE)
[2021-08-24 13:06] LABS: URINE WBC, MICROSCOPIC 0-2 (0-2)
[2021-08-24 13:07] LABS: MUCUS,URINE 2+ (NOT PRESENT)
[2021-08-24] MEDS ORDERED: SODIUM CHLORIDE 1,000 ML IV STA (13:09)
[2021-08-24 13:10] LABS: AMPHETAMINE SCREEN,URINE NEGATIVE (NEGATIVE); BARBITURATE SCREEN,URINE NEGATIVE (NEGATIVE); BENZODIAZEPINES SCREEN,URINE NEGATIVE (NEGATIVE); METHADONE URINE SCREEN NEGATIVE (NEGATIVE); METHAMPHETAMINES SCREEN,URINE NEGATIVE (NEGATIVE); OPIATE SCREEN,URINE NEGATIVE (NEGATIVE); OXYCODONE URINE SCREEN NEGATIVE (NEGATIVE); PHENCYCLIDINE SCREEN,URINE NEGATIVE (NEGATIVE); PROPOXYPHENE URINE SCREEN NEGATIVE (NEGATIVE); TRICYCLIC ANTIDEPRESSANTS URIN NEGATIVE (NEGATIVE)
[2021-08-24] MEDS ORDERED: ROCEPHIN 1 GM/50 ML D5W 1 GM/50 ML BAG IV STA (13:10)
[2021-08-24 13:11] LABS: CANNABINOID SCREEN,URINE NEGATIVE (NEGATIVE); COCAIN SCREEN,URINE NEGATIVE (NEGATIVE)
[2021-08-24] MEDS ORDERED: VENTOLIN HFA (PER PUFF-WITH SPACER) IH ONE (13:16)
[2021-08-24] MEDS ORDERED: SOLU-MEDROL 125 MG IVP ONE (13:16)
[2021-08-24 13:17] LABS: BORDETELLA PARAPERTUSSIS (PCR) NOT DETECTED (NOT DETECT); BORDETELLA PERTUSSIS (PCR) NOT DETECTED (NOT DETECT); CHLAMYDIA PNEUMONIAE (PCR) NOT DETECTED (NOT DETECT); CORONAVIRUS 229E (PCR) NOT DETECTED (NOT DETECT); CORONAVIRUS HKU1 (PCR) NOT DETECTED (NOT DETECT); CORONAVIRUS NL63 (PCR) NOT DETECTED (NOT DETECT); CORONAVIRUS OC43 (PCR) NOT DETECTED (NOT DETECT); HUMAN METAPNEUMOVIRUS (PCR) NOT DETECTED (NOT DETECT); HUMAN RHINOVIRUS/ENTEROV (PCR) NOT DETECTED (NOT DETECT); INFLUENZA B (PCR) NOT DETECTED (NOT DETECT); MYCOPLASMA PNEUMONIAE (PCR) NOT DETECTED (NOT DETECT); PARAINFLUENZA VIRUS 1 (PCR) NOT DETECTED (NOT DETECT); PARAINFLUENZA VIRUS 2 (PCR) NOT DETECTED (NOT DETECT); PARAINFLUENZA VIRUS 3 (PCR) NOT DETECTED (NOT DETECT); PARAINFLUENZA VIRUS 4 (PCR) NOT DETECTED (NOT DETECT); RESPIRATORY SYNCYTIAL V (PCR) NOT DETECTED (NOT DETECT); SARS_COV_2 (PCR) NOT DETECTED (NOT DETECT)
[2021-08-24 14:05] LABS: ADENOVIRUS (PCR) NOT DETECTED (NOT DETECT)
[2021-08-24 15:42] VITALS: BMI 25.4
[2021-08-24] MEDS ORDERED: TYLENOL PO PRN (17:25)
[2021-08-24] MEDS ORDERED: ZOFRAN 4 MG/2 ML IVP PRN (17:25)
[2021-08-24] MEDS: SOLU-MEDROL 125 MG IVP SCH ×3 (17:36→23:24)
[2021-08-24] MEDS: PLAVIX PO SCH (18:25)
[2021-08-24] MEDS: LOVENOX SUBCUT SCH (18:27)
[2021-08-24] MEDS: SODIUM CHLORIDE 1,000 ML IV SCH ×2 (18:46→23:34)
[2021-08-24] MEDS: PRAVACHOL PO SCH (20:46)
[2021-08-24] MEDS ORDERED: MYSOLINE PO SCH ×2 (21:00→21:33)
[2021-08-25 05:56] LABS: BASOPHILS % (AUTO) 0.1 % (0.0-3.0); HEMATOCRIT 33.6 % (37.0-47.0); HEMOGLOBIN 11.1 g/dl (12.0-16.0); IMMATURE GRANULOCYTE # (AUTO) 0.2 (0.0-1.0); IMMATURE GRANULOCYTE % (AUTO) 0.9 % (0.0-5.0); LYMPHOCYTES # (AUTO) 0.7 K/uL (0.60-3.4); LYMPHOCYTES % (AUTO) 3.5 (10.0-50.0); MEAN CORPUSCULAR HEMOGLOBIN 26.1 pg (27.0-31.0); MEAN CORPUSCULAR VOLUME 79.1 fl (81.0-99.0); MONOCYTES % (AUTO) 4.8 (0-10); NEUTROPHILS # (AUTO) 18.5 K/ul (2.0-6.9); NEUTROPHILS % (AUTO) 90.7 % (42.2-75.2); PLATELET COUNT 260 10^3/uL (140-440); RDW COEFFICIENT OF VARIATION 12.8 % (11.6-14.8); RED BLOOD COUNT 4.25 10^6/ul (4.20-5.40); WHITE BLOOD COUNT 20.36 K/ul (4.6-10.2)
[2021-08-25 06:12] LABS: ALANINE AMINOTRANSFERASE 14.6 U/L (0-35); ALBUMIN 3.57 g/dL (3.5-5.0); ALKALINE PHOSPHATASE 83.6 U/L (53-141); ASPARTATE AMINO TRANSFERASE 25.6 U/L (14-36); BILIRUBIN,TOTAL 0.98 mg/dL (0.2-1.3); BLOOD UREA NITROGEN 23.7 mg/dL (7-17); CALCIUM 9.44 mg/dL (8.4-10.2); CARBON DIOXIDE 22.6 mmol/L (22-30.0); CHLORIDE 95.4 mmol/L (98-107); CREATININE 0.86 mg/dL (0.60-1.30); GLUCOSE 240.7 mg/dL (74-106); POTASSIUM 3.96 mmol/L (3.5-5.1); SODIUM 127.4 mmol/L (134.5-145); TOTAL PROTEIN 7.05 g/dL (6.3-8.2)
[2021-08-25] MEDS: SOLU-MEDROL 125 MG IVP SCH ×3 (06:18→22:00)
--- NOTE | 2021-08-25 07:51 | DI ---
EXAM: Radiographs, right wrist HISTORY: Initial presentation for right wrist trauma. COMPARISON: Right forearm radiograph 12/10/2019. TECHNIQUE: Three views. FINDINGS: Bone mineralization is normal. There is no fracture or dislocation. At least moderate os teoarthritis, greatest at the first interphalangeal joint and second distal interphalangeal joint. T issue swelling seen along the volar aspect of the distal forearm, wrist and hand. IMPRESSION: Soft tissue swelling without acute fracture or dislocation.
--- NOTE | 2021-08-25 07:51 | DI ---
EXAM: Single view pelvis. Single frog-leg view left hip. HISTORY: Fall with pain COMPARISON: CT abdomen/pelvis 08/23/2021 FINDINGS: There is no acute fracture or dislocation. Mild bilateral hip joint space narrowing is see n. The bones appear diffusely demineralized. Lower lumbar spondylosis is suggested. Soft tissues a re unremarkable. OPINION: No acute osseous abnormality. Senescent findings as above.
--- NOTE | 2021-08-25 07:52 | DI ---
EXAM: Radiographs, left knee HISTORY: Initial presentation for left knee trauma. COMPARISON: None. TECHNIQUE: Four views. FINDINGS: Bone mineralization is normal. There is no fracture or dislocation. The joint spaces are maintained. There is increased opacity in the suprapatellar bursal region. IMPRESSION: Joint effusion without fracture or dislocation.
[2021-08-25] MEDS: ROCEPHIN 1 GM/50 ML D5W 1 GM/50 ML BAG IV SCH (09:38)
[2021-08-25] MEDS: LOVENOX SUBCUT SCH (11:22)
[2021-08-25] MEDS: PLAVIX PO SCH (11:22)
[2021-08-25] MEDS: COZAAR PO SCH (11:22)
[2021-08-25] MEDS: PROTONIX PO SCH (11:22)
[2021-08-25] MEDS: PROPRANOLOL 120 MG PO SCH (11:34)
[2021-08-25] MEDS: NON-FORMULARY MEDICATION (Linaclotide [Linzess] 72 mcg Capsule) PO SCH (11:34)
[2021-08-25] MEDS: SODIUM CHLORIDE 1,000 ML IV SCH (14:13)
[2021-08-25] MEDS: MYSOLINE PO SCH (20:30)
[2021-08-25] MEDS ORDERED: MYSOLINE ONE (20:30)
[2021-08-25] MEDS: PRAVACHOL PO SCH (20:30)
[2021-08-25] MEDS ORDERED: MYSOLINE PO SCH (21:00)
[2021-08-26] MEDS: SODIUM CHLORIDE 1,000 ML IV SCH ×2 (02:25→14:58)
[2021-08-26 05:32] LABS: BASOPHILS % (AUTO) 0.1 % (0.0-3.0); HEMATOCRIT 29.5 % (37.0-47.0); HEMOGLOBIN 9.8 g/dl (12.0-16.0); IMMATURE GRANULOCYTE # (AUTO) 0.2 (0.0-1.0); IMMATURE GRANULOCYTE % (AUTO) 0.9 % (0.0-5.0); LYMPHOCYTES # (AUTO) 0.7 K/uL (0.60-3.4); MEAN CORPUSCULAR HEMOGLOBIN 26.6 pg (27.0-31.0); MEAN CORPUSCULAR HGB CONC 33.2 (31.8-35.4); MEAN CORPUSCULAR VOLUME 79.9 fl (81.0-99.0); MONOCYTES % (AUTO) 5.9 (0-10); NEUTROPHILS # (AUTO) 15.2 K/ul (2.0-6.9); NEUTROPHILS % (AUTO) 89.1 % (42.2-75.2); PLATELET COUNT 242 10^3/uL (140-440); RDW COEFFICIENT OF VARIATION 12.8 % (11.6-14.8); RED BLOOD COUNT 3.69 10^6/ul (4.20-5.40); WHITE BLOOD COUNT 17.09 K/ul (4.6-10.2)
[2021-08-26 05:47] LABS: ALANINE AMINOTRANSFERASE 18.7 U/L (0-35); ALBUMIN 2.95 g/dL (3.5-5.0); ALKALINE PHOSPHATASE 80.8 U/L (53-141); ASPARTATE AMINO TRANSFERASE 28.8 U/L (14-36); BILIRUBIN,TOTAL 0.31 mg/dL (0.2-1.3); BLOOD UREA NITROGEN 27.1 mg/dL (7-17); CALCIUM 8.94 mg/dL (8.4-10.2); CARBON DIOXIDE 22.3 mmol/L (22-30.0); CHLORIDE 100.4 mmol/L (98-107); CREATININE 0.78 mg/dL (0.60-1.30); GLUCOSE 294.1 mg/dL (74-106); POTASSIUM 4.22 mmol/L (3.5-5.1); SODIUM 129.6 mmol/L (134.5-145); TOTAL PROTEIN 5.96 g/dL (6.3-8.2)
[2021-08-26] MEDS: SOLU-MEDROL 125 MG IVP SCH ×3 (06:00→20:30)
[2021-08-26] MEDS: PROPRANOLOL 120 MG PO SCH (09:00)
[2021-08-26] MEDS: NON-FORMULARY MEDICATION (Linaclotide [Linzess] 72 mcg Capsule) PO SCH (09:00)
[2021-08-26] MEDS: COZAAR PO SCH (09:51)
[2021-08-26] MEDS: PROTONIX PO SCH (09:51)
[2021-08-26] MEDS: PLAVIX PO SCH (09:51)
[2021-08-26] MEDS: ROCEPHIN 1 GM/50 ML D5W 1 GM/50 ML BAG IV SCH (09:51)
[2021-08-26] MEDS: LOVENOX SUBCUT SCH (09:55)
--- NOTE | 2021-08-26 10:53 | PN ---
DATE OF VISIT: 08/25/2021 SUBJECTIVE: I am seeing Ms. Razo as hospitalist. She was admitted with UTI and some altered mental status. Nursing staff says that she is doing very well. Actually woke her up from sleep on rounds. She voiced no complaints. OBJECTIVE: VITALS: Temperature 98.6, pulse 80, respiratory rate 18, blood pressure 130/80 REVIEW OF SYSTEMS: Denies headaches, visual changes, tinnitus or chest pain. Positive for shortness of breath with exertion. No hemoptysis, abdominal pain, blood in the stool, urinary symptoms or seizures. PHYSICAL EXAMINATION: HEENT: Pupils are round. NECK: Supple. CHEST: Clear. CARDIOVASCULAR: Regular rate and rhythm. ABDOMEN: Soft, nontender. EXTREMITIES: Distal extremities without cyanosis or edema. IMPRESSION: 1. Pyelonephritis 2. Altered mental status PLAN: 1. We are going to continue antibiotics 2. Instructed the nurses to perform neuro-checks 3. Check labs in AM MTDD
--- NOTE | 2021-08-26 11:06 | PCM.PROG ---
Date Seen by Provider: 08/26/21 Time Seen by Provider: 10:00 Subjective: Feeling better. Can get up to go to the bathroom. Objective: Vitals: T=98 F, P=77, R=18, YS=864/53, SPO2=95 HEENT: [WNL] Neck: []supple Lungs: [clear] CVS: [RRR without m] Abdomen: soft[] Extremities: [intact, no edema] Neurological: intact[] Skin: [intact] Lab/Tests/Diagnostic Imaging: [] (1) Acute pyelonephritis due to bacteria: Status: Acute Code(s): N10 - Acute pyelonephritis; B96.89 - Other specified bacterial agents as the cause of diseases classified elsewhere SNOMED Code(s): 649630416 Assessment: On rocephin. WBC coming down. Afebrile. Awaiting urine culture. Plan: Continue current management. Labs in a.m.
--- NOTE | 2021-08-26 11:52 | RS.PTINEVL ---
Subjective - Patient information Date of Evaluation: 08/26/21 Date of Arrival on Unit: 08/24/21 Admitted From:: Home Diagnosis: urosepsis, altered mental status Usual Living Arrangement: Alone Home Environment: Apartment, Stairs (few), Rail Medical History: Hypertension, CVA/TIA Medical History Comments:: familial tremor Surgical History: Cholecystectomy, Hysterectomy, Medications: see chart Subjective Information/ Patient Comments:: pt states that she was "seeing things and people that weren't there." She reports she is feeling better now. 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, Drive, Participated in Social Activities Outside home Current Level of Function: Partially Dependent Current Equipment Used at Home: none Pain Assessement - Location L knee Description: Aching Pain Behavior: Rubbing Site Pain Aggravating Factors: Changing Position Pain Alleviating Factors: Exercise Interventions - Objective Patient Orientation: Person, Place, Situation Current Interventions: IV's, Oxygen, Telemetry Observation: pt presents with min edema noted in L knee Range of Motion - ROM Right Upper Extremity AROM: WFL's Left Upper Extremity AROM: WFL's Right Lower Extremity AROM: WFL's Left Lower Extremity AROM: WFL's Muscle Strength - Muscle Strength Right Upper Extremity Strength: Mild Weakness (grossly 4+/5) Left Upper Extremity Strength: Mild Weakness (grossly 4+/5) Right Lower Extremity Strength: Mild Weakness (hip flex 4/5, knee flex/ext 4+/5, ankle DF/PF 4+/5) Left Lower Extremity Strength: Mild Weakness (hip flex 4/5, knee flex/ext 4/5, ankle DF/PF 4+/5) Sensation - Sensation Right Upper Extremity Sensation: Intact/Normal Left Upper Extremity Sensation: Intact/Normal Right Lower Extremity Sensation: Intact/Normal Left Lower Extremity Sensation: Intact/Normal Palpation Palpation Findings: None/Normal Balance - Sitting Balance and Reactions Static Sitting Balance: Good Dynamic Sitting Balance: Fair - Standing Balance and Reactions Static Standing Balance: Poor Dynamic Standing Balance: Poor Standing Equilibrium Reactions: Delayed Left, Delayed Right Standing Protective Reactions: Delayed Left, Delayed Right Functional Mobility - Bed Mobility Rolling R/L: Min Assist Supine to Sit: Min Assist - Transfers Sit to Stand: Min Assist Stand to Sit: Min Assist - Safety Awareness Safety Awareness: Fair [place] INDEX SCORE: n/a Ambulation - Ambulation Assistive Device Used: Rolling Walker Orthotic/Prosthetic Device: No Distance: 120ft Assistance needed with Ambulation: Min Assist, 1 person assist, 2 person assist Gait Deviations: Forward posture, Short stride, Deviates from path Factors Affecting Ambulation: Decreased Balance, Pain, Weakness, Decreased Safety, Limited Endurance Treatment time - Time with patient Length of Evaluation: 21 Total treatment time: 33 Patient Education - Education Patient Education: Activity Modification, Education of Plan of Care Teaching Recipient: Patient Teaching Methods: Discussion, Demonstration Assessment - Assessment Problem List:: Decreased level of function, Requires training/education, Decreased safety/Risk of falls, Weakness, Pain limits previous level of function Rehab Potential: Good Further Therapy Indicated?: Yes Candidate for Swing Bed for Therapy Services?: Feel pt may not require skilled PT for swing bed due to pt at higher level of function. Evaluation Complexity: HISTORY: Medium, EXAM OF BODY SYSTEMS: Medium, CLINICAL PRESENTATION: Medium, CLINICAL DECISION MAKING: Medium Patient's Goal(s): get stronger and go home Short Term Goals GOAL #1: pt independent with rolling and scooting in bed Goal to be met by: 08/29/21 GOAL #2: Transfer sup to/from sit CGA Goal to be met by: 08/29/21 GOAL #3: sit to/from stand CGA Goal to be met by: 08/29/21 GOAL #4: pt amb with RWX or AAD 120ft with SBA Goal to be met by: 08/29/21 GOAL #5: Improve BLE strength 4+ to 5/5 Goal to be met by: 08/29/24 Skilled Nursing Goals GOAL #1: pt transfer sup to/from sit to/stand independently Goal to be met by: 08/31/21 GOAL #2: pt amb with AAD 140ft with SBA Goal to be met by: 08/31/21 GOAL #3: Ascend/descend 3 steps w handrail SBA Goal to be met by: 08/31/21 Plan Plan of Care: Therapeutic EX, Therapeutic Activity Other:: Gait training Frequency of Treatment: 1-2 X day, as tolerated Duration of Treatment: 5 days Anticipated Discharge Destination: Home Treatment Diagnosis (ICD 10 Codes): impaired balance R 26.81. difficulty walking R 26.2. muscle weakness M62.81 Has the Physician been added for Co-signature?: Yes
--- NOTE | 2021-08-26 13:51 | RS.OTINEVL ---
Subjective - Patient information Date of Evaluation: 08/26/21 Date of Arrival on Unit: 08/24/21 Admitted From:: Emergency Dept Diagnosis: AMS, Urosepsis PRECAUTIONS: Recent falls Usual Living Arrangement: Alone Living Arrangement Comments: Lives in apartment Home Environment: Apartment, Stairs (few), Rail Medical History: Arthritis Medical History Comments:: UTI, familial tremors, edema of knees, Subjective Information/ Patient Comments:: My knees are sore and my right shoulder. I drive and shop for myself. I don't use a walker. 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 Current Level of Function: Partially Dependent Comments: weak Current Equipment Used at Home: none Pain Assessment - Pain Pain Score: 4 Side: bilateral Pain Location Body Site: Knee Pain Aggravating Factors: ADL's, Changing Position, Standing Pain Alleviating Factors: Medication, Position Change Interventions - Objective Patient Orientation: Person, Place, Time, Situation Current Interventions: IV's, Oxygen, Telemetry Observation: Pt was able to walk without the RW with Min assistance x 1. Interventions - ROM Right Upper Extremity AROM: WFL's Left Upper Extremity AROM: WFL's - Strength Right Upper Extremity Strength: Mild Weakness Left Upper Extremity Strength: Mild Weakness - Sensation Right Upper Extremity Sensation: Intact/Normal Left Upper Extremity Sensation: Intact/Normal Balance - Sitting Balance Static Sitting Balance: Good Dynamic Sitting Balance: Good - Standing Balance Static Standing Balance: Fair Dynamic Standing Balance: Fair ADL Skills - Self Feeding Self Feeding: Independent - Grooming Grooming: Min Assist - Dressing Dressing UE: Independent Dressing LE: CGA - Toilet Management Toilet Hygiene: Independent Toilet Clothing Management: CGA Functional Mobility - Transfers Sit to Stand: Min Assist Stand to Sit: Min Assist Stand Pivot Transfers: Min Assist LORETTA INDEX SCORE: . Additional Treatment Performed - Time with patient Length of Evaluation: 20 Total treatment time: 25 Activities Do you enjoy playing games?: Yes Would you be interested in leaving your room for activities?: Yes Would you enjoy group activities?: Yes Do you have difficulty with your vision?: Yes Patient Interests:: Watching Television, Visiting/Socializing Patient Education Patient Education: Education of diagnosis Teaching Recipient: Patient Teaching Methods: Discussion Assessment Problem List:: Requires training/education, Decreased safety/Risk of falls, Weakness Rehab Potential: Good Evaluation Complexity: HISTORY: Medium, EXAM OF BODY SYSTEMS: Medium, CLINICAL DECISION MAKING: Medium Patient's Goal(s): To be able to go back home. Short Term Goals - Goals GOAL 1: Pt to be SUP for sink level ADLS. Goal to be met by: 08/29/21 GOAL 2: Pt to increase activity tolerance to 15 minutes for safety of ADLs. Goal to be met by: 08/29/21 GOAL 3: Pt to increase independence of toilet transfers to SUP. 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 Goal to be met by: 08/31/21 GOAL 2: Pt to tolerate 20 minutes of activity without LOB. Goal to be met by: 08/31/21 Plan Plan of Care: Therapeutic EX, Therapeutic Activity, Self-Care/Home Management Frequency of Treatment: 1-2 X day, as tolerated Duration of Treatment: 1 Week Anticipated Discharge Destination: Home Treatment Diagnosis (ICD 10 Codes): Weakness R53.1, Z74.1 Need for assistance with personal care. Has the Physician been added for Co-signature?: Yes
[2021-08-26] MEDS: AMITIZA PO SCH (20:29)
[2021-08-26] MEDS: PRAVACHOL PO SCH (20:29)
[2021-08-26] MEDS ORDERED: MYSOLINE ONE (20:31)
[2021-08-26] MEDS: MYSOLINE PO SCH (20:31)
[2021-08-26] MEDS: HUMULIN R SUBCUT PRN (20:33)
[2021-08-26] MEDS ORDERED: ARTIFICIAL TEARS DROPS OP SCH (21:00)
[2021-08-26] MEDS ORDERED: ARTIFICIAL TEARS DROPS OP PRN (21:26)
[2021-08-27] MEDS: SODIUM CHLORIDE 1,000 ML IV SCH ×3 (03:10→17:18)
[2021-08-27 05:27] LABS: BASOPHILS % (AUTO) 0.1 % (0.0-3.0); HEMOGLOBIN 9.2 g/dl (12.0-16.0); IMMATURE GRANULOCYTE # (AUTO) 0.1 (0.0-1.0); LYMPHOCYTES # (AUTO) 0.6 K/uL (0.60-3.4); LYMPHOCYTES % (AUTO) 4.7 (10.0-50.0); MEAN CORPUSCULAR HEMOGLOBIN 26.4 pg (27.0-31.0); MEAN CORPUSCULAR HGB CONC 32.9 (31.8-35.4); MEAN CORPUSCULAR VOLUME 80.2 fl (81.0-99.0); MONOCYTES # (AUTO) 0.7 K/uL (0.4-2.0); MONOCYTES % (AUTO) 5.2 (0-10); NEUTROPHILS # (AUTO) 12.1 K/ul (2.0-6.9); PLATELET COUNT 246 10^3/uL (140-440); RDW COEFFICIENT OF VARIATION 12.9 % (11.6-14.8); RED BLOOD COUNT 3.49 10^6/ul (4.20-5.40); WHITE BLOOD COUNT 13.59 K/ul (4.6-10.2)
[2021-08-27 05:44] LABS: ALBUMIN 2.71 g/dL (3.5-5.0); ALKALINE PHOSPHATASE 89.8 U/L (53-141); ASPARTATE AMINO TRANSFERASE 22.2 U/L (14-36); BILIRUBIN,TOTAL 0.18 mg/dL (0.2-1.3); BLOOD UREA NITROGEN 20.4 mg/dL (7-17); CALCIUM 8.3 mg/dL (8.4-10.2); CARBON DIOXIDE 23.7 mmol/L (22-30.0); CHLORIDE 103.7 mmol/L (98-107); CREATININE 0.71 mg/dL (0.60-1.30); GLUCOSE 275.8 mg/dL (74-106); POTASSIUM 3.77 mmol/L (3.5-5.1); SODIUM 132.4 mmol/L (134.5-145); TOTAL PROTEIN 5.62 g/dL (6.3-8.2)
[2021-08-27] MEDS: HUMULIN R SUBCUT PRN ×3 (06:08→20:34)
[2021-08-27] MEDS: PROTONIX PO SCH (08:40)
[2021-08-27] MEDS: PLAVIX PO SCH (08:40)
[2021-08-27] MEDS: COZAAR PO SCH (08:40)
[2021-08-27] MEDS: AMITIZA PO SCH ×2 (08:40→20:33)
[2021-08-27] MEDS: ROCEPHIN 1 GM/50 ML D5W 1 GM/50 ML BAG IV SCH (08:42)
[2021-08-27] MEDS: PROPRANOLOL 120 MG PO SCH (08:42)
[2021-08-27] MEDS: LOVENOX SUBCUT SCH (08:42)
[2021-08-27] MEDS: PRAVACHOL PO SCH (20:32)
[2021-08-27] MEDS: MYSOLINE PO SCH (20:33)
[2021-08-27] MEDS ORDERED: MYSOLINE ONE (20:33)
[2021-08-27] MEDS: SOLU-MEDROL 125 MG IVP SCH (22:48)
[2021-08-27] MEDS: VENTOLIN HFA (PER PUFF-WITH SPACER) IH SCH (23:00)
[2021-08-27] MEDS: ATROVENT HFA INHALER (PER PUFF-WITH SPACER) IH SCH (23:00)
--- NOTE | 2021-08-27 23:01 | DI ---
Exam: Chest one-view History: Wheezing FINDINGS: Normal cardiomediastinal contours. Normal pulmonary vasculature. There is chronic inters titial coarsening without focal infiltrate. No acute chest wall abnormality. Atherosclerotic calcif ication of the aorta. Impression: Senescent chest without acute cardiopulmonary disease
[2021-08-28] MEDS: ATROVENT HFA INHALER (PER PUFF-WITH SPACER) IH SCH ×3 (04:50→14:31)
[2021-08-28] MEDS: VENTOLIN HFA (PER PUFF-WITH SPACER) IH SCH ×3 (04:50→14:31)
[2021-08-28 05:38] VITALS: BP 133/55; TEMP 97.8
[2021-08-28] MEDS: SOLU-MEDROL 125 MG IVP SCH (05:39)
[2021-08-28] MEDS: HUMULIN R SUBCUT PRN ×2 (05:40→11:34)
[2021-08-28] MEDS: SODIUM CHLORIDE 1,000 ML IV SCH ×2 (05:40→13:40)
[2021-08-28] MEDS: AMITIZA PO SCH (08:53)
[2021-08-28] MEDS: COZAAR PO SCH (08:53)
[2021-08-28] MEDS: PLAVIX PO SCH (08:53)
[2021-08-28] MEDS: PROTONIX PO SCH (08:53)
[2021-08-28] MEDS: PROPRANOLOL 120 MG PO SCH (08:55)
[2021-08-28] MEDS: LOVENOX SUBCUT SCH (08:55)
[2021-08-28] MEDS: KEFLEX PO SCH ×2 (10:20→11:35)
--- NOTE | 2021-08-28 14:35 | PCM.DC ---
Final Diagnosis: Pyelonephritis - resolved. Dehydration - resolved. (1) Acute pyelonephritis due to bacteria: Status: Acute Code(s): N10 - Acute pyelonephritis; B96.89 - Other specified bacterial agents as the cause of diseases classified elsewhere SNOMED Code(s): 811925832 Reason for Hospitalization: UTI failed outpatient tx, developed pyelonephritis, volume depletion, no sepsis. Prognosis/Condition at Discharge: stable Medications at Discharge: Ambulatory Orders Medication Instructions Recorded clopidogrel 75 mg tablet (Plavix) 75 mg PO DAILY 12/10/19 pantoprazole 20 mg tablet,delayed 40 mg PO DAILY 12/10/19 release losartan 50 mg tablet 50 mg PO DAILY 03/24/21 polyethylene glycol 3350 17 17 g PO DAILY PRN 03/24/21 gram/dose oral powder (Miralax) pravastatin 40 mg tablet 40 mg PO BEDTIME 03/24/21 propranolol 120 mg 120 mg PO DAILY 03/24/21 capsule,extended release 24 hr linaclotide 72 mcg capsule 72 mcg PO DAILY 07/19/21 (Linzess) cephalexin 500 mg capsule 500 mg PO BID 7 Days #14 cap 08/23/21 primidone 50 mg tablet 100 mg PO BEDTIME 08/24/21 cephalexin 500 mg tablet 500 mg PO BID #14 tab 08/28/21 Lab/Diagnostics: Laboratory Tests 08/24/21 08/24/21 08/24/21 12:00 12:10 12:10 WBC 23.54 H RBC 4.68 Hgb 12.2 Hct 36.4 L MCV 77.8 L MCH 26.1 L MCHC 33.5 RDW Coeff of Jaleesa 12.7 Plt Count 237 Immature Gran % (Auto) 0.9 Neut % (Auto) 84.1 H Lymph % (Auto) 4.7 L [place] % (Auto) 10.2 H Eos % (Auto) 0.0 Baso % (Auto) 0.1 Neut # (Auto) 19.8 H Lymph # (Auto) 1.1 [place] # (Auto) 2.4 H Eos # (Auto) 0.0 Baso # (Auto) 0.0 Immature Gran # (Auto) 0.2 Puncture Site Base Excess O2 Saturation ABG pH ABG pCO2 ABG pO2 ABG HCO3 ABG Total CO2 Quentin Test Hemoglobin Oxyhemoglobin Carboxyhemoglobin Total Hemoglobin FiO2 % Sodium 129.4 L Potassium 3.71 Chloride 93.7 L Carbon Dioxide 25.2 Anion Gap 14.21 BUN 19.3 H Creatinine 0.83 Estimated GFR (MDRD) 65.00 BUN/Creatinine Ratio 23.25 Glucose 184.5 H Calcium 9.75 Total Bilirubin 1.59 H AST 36.4 H ALT 16.2 Alkaline Phosphatase 86.8 Troponin I < 0.012 Total Protein 7.52 Albumin 4.08 Globulin 3.44 Albumin/Globulin Ratio 1.18 Urine Color Urine Clarity Urine pH Ur Specific [place] Urine Protein Urine Glucose (UA) Urine Ketones Urine Blood Urine Nitrite Urine Bilirubin Urine Urobilinogen Ur Leukocyte Esterase Urine Microscopic RBC Urine Microscopic WBC Ur Squamous Epith Cells Hyaline Casts Urine Mucus Urine Opiates Screen Ur Oxycodone Screen Urine Methadone Screen Ur Propoxyphene Screen Ur Barbiturates Screen U Tricyclic Antidepress Ur Phencyclidine Scrn Ur Amphetamine Screen U Methamphetamines Scrn U Benzodiazepines Scrn Urine Cocaine Screen U Cannabinoids Screen Adenovirus (PCR) B. pertussis DNA (PCR) B.parapertussis DNA PCR C. pneumoniae DNA (PCR) Coronavirus OC43 (PCR) Coronavirus HKU1 (PCR) Coronavirus 229E (PCR) Coronavirus NL63 (PCR) Human Metapneumovir PCR Influenza Type A (PCR) Influenza B (RT-PCR) M. pneumoniae (PCR) Parainfluenza 1 (PCR) Parainfluenza 2 (PCR) Parainfluenza 3 (PCR) Parainfluenza 4 (PCR) RSV (PCR) Entero/Rhino (PCR) SARS-CoV-2 (PCR) Blood Type 08/24/21 08/24/21 08/24/21 12:30 12:50 12:50 WBC RBC Hgb Hct MCV MCH MCHC RDW Coeff of Jaleesa Plt Count Immature Gran % (Auto) Neut % (Auto) Lymph % (Auto) [place] % (Auto) Eos % (Auto) Baso % (Auto) Neut # (Auto) Lymph # (Auto) [place] # (Auto) Eos # (Auto) Baso # (Auto) Immature Gran # (Auto) Puncture Site Rb Base Excess 1.0 O2 Saturation 91.5 L ABG pH 7.47 H ABG pCO2 34.0 L ABG pO2 58.0 L* ABG HCO3 24.7 ABG Total CO2 25.7 H Quentin Test Pos Hemoglobin 1.5 Oxyhemoglobin 91.9 L Carboxyhemoglobin 2.6 H Total Hemoglobin 11.1 L FiO2 % 21.0 Sodium Potassium Chloride Carbon Dioxide Anion Gap BUN Creatinine Estimated GFR (MDRD) BUN/Creatinine Ratio Glucose Calcium Total Bilirubin AST ALT Alkaline Phosphatase Troponin I Total Protein Albumin Globulin Albumin/Globulin Ratio Urine Color Dark Urine Clarity Slightly Urine pH 5.5 Ur Specific [place] >=1.030 Urine Protein 3+ H Urine Glucose (UA) Trace H Urine Ketones 2+ H Urine Blood 2+ H Urine Nitrite Negative Urine Bilirubin 1+ H Urine Urobilinogen 1.0 H Ur Leukocyte Esterase Negative Urine Microscopic RBC 10-20 Urine Microscopic WBC 0-2 Ur Squamous Epith Cells 5-10 Hyaline Casts 2-5 Urine Mucus 2+ Urine Opiates Screen Negative Ur Oxycodone Screen Negative Urine Methadone Screen Negative Ur Propoxyphene Screen Negative Ur Barbiturates Screen Negative U Tricyclic Antidepress Negative Ur Phencyclidine Scrn Negative Ur Amphetamine Screen Negative U Methamphetamines Scrn Negative U Benzodiazepines Scrn Negative Urine Cocaine Screen Negative U Cannabinoids Screen Negative Adenovirus (PCR) B. pertussis DNA (PCR) B.parapertussis DNA PCR C. pneumoniae DNA (PCR) Coronavirus OC43 (PCR) Coronavirus HKU1 (PCR) Coronavirus 229E (PCR) Coronavirus NL63 (PCR) Human Metapneumovir PCR Influenza Type A (PCR) Influenza B (RT-PCR) M. pneumoniae (PCR) Parainfluenza 1 (PCR) Parainfluenza 2 (PCR) Parainfluenza 3 (PCR) Parainfluenza 4 (PCR) RSV (PCR) Entero/Rhino (PCR) SARS-CoV-2 (PCR) Blood Type 08/24/21 08/25/21 08/25/21 13:12 05:29 05:29 WBC 20.36 H RBC 4.25 Hgb 11.1 L Hct 33.6 L MCV 79.1 L MCH 26.1 L MCHC 33.0 RDW Coeff of Jaleesa 12.8 Plt Count 260 Immature Gran % (Auto) 0.9 Neut % (Auto) 90.7 H Lymph % (Auto) 3.5 L [place] % (Auto) 4.8 Eos % (Auto) 0.0 Baso % (Auto) 0.1 Neut # (Auto) 18.5 H Lymph # (Auto) 0.7 [place] # (Auto) 1.0 Eos # (Auto) 0.0 Baso # (Auto) 0.0 Immature Gran # (Auto) 0.2 Puncture Site Base Excess O2 Saturation ABG pH ABG pCO2 ABG pO2 ABG HCO3 ABG Total CO2 Quentin Test Hemoglobin Oxyhemoglobin Carboxyhemoglobin Total Hemoglobin FiO2 % Sodium 127.4 L Potassium 3.96 Chloride 95.4 L Carbon Dioxide 22.6 Anion Gap 13.36 BUN 23.7 H Creatinine 0.86 Estimated GFR (MDRD) 63.00 BUN/Creatinine Ratio 27.55 Glucose 240.7 H D Calcium 9.44 Total Bilirubin 0.98 AST 25.6 ALT 14.6 Alkaline Phosphatase 83.6 Troponin I Total Protein 7.05 Albumin 3.57 Globulin 3.48 Albumin/Globulin Ratio 1.02 Urine Color Urine Clarity Urine pH Ur Specific [place] Urine Protein Urine Glucose (UA) Urine Ketones Urine Blood Urine Nitrite Urine Bilirubin Urine Urobilinogen Ur Leukocyte Esterase Urine Microscopic RBC Urine Microscopic WBC Ur Squamous Epith Cells Hyaline Casts Urine Mucus Urine Opiates Screen Ur Oxycodone Screen Urine Methadone Screen Ur Propoxyphene Screen Ur Barbiturates Screen U Tricyclic Antidepress Ur Phencyclidine Scrn Ur Amphetamine Screen U Methamphetamines Scrn U Benzodiazepines Scrn Urine Cocaine Screen U Cannabinoids Screen Adenovirus (PCR) Not detected B. pertussis DNA (PCR) Not detected B.parapertussis DNA PCR Not detected C. pneumoniae DNA (PCR) Not detected Coronavirus OC43 (PCR) Not detected Coronavirus HKU1 (PCR) Not detected Coronavirus 229E (PCR) Not detected Coronavirus NL63 (PCR) Not detected Human Metapneumovir PCR Not detected Influenza Type A (PCR) Not detected Influenza B (RT-PCR) Not detected M. pneumoniae (PCR) Not detected Parainfluenza 1 (PCR) Not detected Parainfluenza 2 (PCR) Not detected Parainfluenza 3 (PCR) Not detected Parainfluenza 4 (PCR) Not detected RSV (PCR) Not detected Entero/Rhino (PCR) Not detected SARS-CoV-2 (PCR) Not detected Blood Type 08/26/21 08/26/21 08/27/21 05:14 05:14 05:06 WBC 17.09 H 13.59 H RBC 3.69 L 3.49 L Hgb 9.8 L 9.2 L Hct 29.5 L 28.0 L MCV 79.9 L 80.2 L MCH 26.6 L 26.4 L MCHC 33.2 32.9 RDW Coeff of Jaleesa 12.8 12.9 Plt Count 242 246 Immature Gran % (Auto) 0.9 1.0 Neut % (Auto) 89.1 H 89.0 H Lymph % (Auto) 4.0 L 4.7 L [place] % (Auto) 5.9 5.2 Eos % (Auto) 0.0 0.0 Baso % (Auto) 0.1 0.1 Neut # (Auto) 15.2 H 12.1 H Lymph # (Auto) 0.7 0.6 [place] # (Auto) 1.0 0.7 Eos # (Auto) 0.0 0.0 Baso # (Auto) 0.0 0.0 Immature Gran # (Auto) 0.2 0.1 Puncture Site Base Excess O2 Saturation ABG pH ABG pCO2 ABG pO2 ABG HCO3 ABG Total CO2 Quentin Test Hemoglobin Oxyhemoglobin Carboxyhemoglobin Total Hemoglobin FiO2 % Sodium 129.6 L Potassium 4.22 Chloride 100.4 Carbon Dioxide 22.3 Anion Gap 11.12 BUN 27.1 H Creatinine 0.78 Estimated GFR (MDRD) 70.00 BUN/Creatinine Ratio 34.74 Glucose 294.1 H D Calcium 8.94 Total Bilirubin 0.31 AST 28.8 ALT 18.7 Alkaline Phosphatase 80.8 Troponin I Total Protein 5.96 L Albumin 2.95 L Globulin 3.01 Albumin/Globulin Ratio 0.98 Urine Color Urine Clarity Urine pH Ur Specific [place] Urine Protein Urine Glucose (UA) Urine Ketones Urine Blood Urine Nitrite Urine Bilirubin Urine Urobilinogen Ur Leukocyte Esterase Urine Microscopic RBC Urine Microscopic WBC Ur Squamous Epith Cells Hyaline Casts Urine Mucus Urine Opiates Screen Ur Oxycodone Screen Urine Methadone Screen Ur Propoxyphene Screen Ur Barbiturates Screen U Tricyclic Antidepress Ur Phencyclidine Scrn Ur Amphetamine Screen U Methamphetamines Scrn U Benzodiazepines Scrn Urine Cocaine Screen U Cannabinoids Screen Adenovirus (PCR) B. pertussis DNA (PCR) B.parapertussis DNA PCR C. pneumoniae DNA (PCR) Coronavirus OC43 (PCR) Coronavirus HKU1 (PCR) Coronavirus 229E (PCR) Coronavirus NL63 (PCR) Human Metapneumovir PCR Influenza Type A (PCR) Influenza B (RT-PCR) M. pneumoniae (PCR) Parainfluenza 1 (PCR) Parainfluenza 2 (PCR) Parainfluenza 3 (PCR) Parainfluenza 4 (PCR) RSV (PCR) Entero/Rhino (PCR) SARS-CoV-2 (PCR) Blood Type 08/27/21 08/27/21 05:06 05:06 WBC RBC Hgb Hct MCV MCH MCHC RDW Coeff of Jaleesa Plt Count Immature Gran % (Auto) Neut % (Auto) Lymph % (Auto) [place] % (Auto) Eos % (Auto) Baso % (Auto) Neut # (Auto) Lymph # (Auto) [place] # (Auto) Eos # (Auto) Baso # (Auto) Immature Gran # (Auto) Puncture Site Base Excess O2 Saturation ABG pH ABG pCO2 ABG pO2 ABG HCO3 ABG Total CO2 Quentin Test Hemoglobin Oxyhemoglobin Carboxyhemoglobin Total Hemoglobin FiO2 % Sodium 132.4 L Potassium 3.77 Chloride 103.7 Carbon Dioxide 23.7 Anion Gap 8.77 BUN 20.4 H Creatinine 0.71 Estimated GFR (MDRD) 78.00 BUN/Creatinine Ratio 28.73 Glucose 275.8 H Calcium 8.30 L Total Bilirubin 0.18 L AST 22.2 ALT 18.0 Alkaline Phosphatase 89.8 Troponin I Total Protein 5.62 L Albumin 2.71 L Globulin 2.91 Albumin/Globulin Ratio 0.93 Urine Color Urine Clarity Urine pH Ur Specific [place] Urine Protein Urine Glucose (UA) Urine Ketones Urine Blood Urine Nitrite Urine Bilirubin Urine Urobilinogen Ur Leukocyte Esterase Urine Microscopic RBC Urine Microscopic WBC Ur Squamous Epith Cells Hyaline Casts Urine Mucus Urine Opiates Screen Ur Oxycodone Screen Urine Methadone Screen Ur Propoxyphene Screen Ur Barbiturates Screen U Tricyclic Antidepress Ur Phencyclidine Scrn Ur Amphetamine Screen U Methamphetamines Scrn U Benzodiazepines Scrn Urine Cocaine Screen U Cannabinoids Screen Adenovirus (PCR) B. pertussis DNA (PCR) B.parapertussis DNA PCR C. pneumoniae DNA (PCR) Coronavirus OC43 (PCR) Coronavirus HKU1 (PCR) Coronavirus 229E (PCR) Coronavirus NL63 (PCR) Human Metapneumovir PCR Influenza Type A (PCR) Influenza B (RT-PCR) M. pneumoniae (PCR) Parainfluenza 1 (PCR) Parainfluenza 2 (PCR) Parainfluenza 3 (PCR) Parainfluenza 4 (PCR) RSV (PCR) Entero/Rhino (PCR) SARS-CoV-2 (PCR) Blood Type O NEGATIVE Signed Patient: JESSICA BROOKS Acct:[id number] Medical Record: [id number] : 1935 Loc: [facility] Room/Bed: Age/Sex: 86 / F ADM Status: ADM IN Date of Service: 08/27/21 Ordering Physician: YOANA OTERO MD Procedure(s): CHEST, 1V AP ONLY Report Number(s): [id number] Accession Number(s): [id number] cc: YOANA OTERO MD; ANGELA OCAMPO Exam: Chest one-view History: Wheezing FINDINGS: Normal cardiomediastinal contours. Normal pulmonary vasculature. There is chronic interstitial coarsening without focal infiltrate. No acute chest wall abnormality. Atherosclerotic calcification of the aorta. Impression: Senescent chest without acute cardiopulmonary disease Education Provided to Patient and Family: UTI Follow-ups: Scheduled Discharge Disposition: Home Hospital Course: Admitted with UTI that failed outpatient tx and resulted in pyelo and volume depletion - no sepsis. Improved with rocephin and IVF. Lab did not prepare the urine culture from the first ER visit. She has keflex from ER visit that she will take that when arrives home. Plan: D/C on keflex and follow-up.
[2021-08-28] MEDS ORDERED: KEFLEX PO SCH (21:00)
== END 2021-08-28 15:00 | disposition home or self-care (01) | DRG 690 ==
LOC: ED 11:05 → MEDSURG A 14:17
PROVIDERS: ADMIT Emergency Medicine; ATTEND Emergency Medicine